=== PATIENT | male | born 1945 | race Caucasian/White ===

== ENCOUNTER 2022-06-21 08:07 | Emergency (ER) | payer MEDICARE, SELFPAY ==
[2022-06-21 08:13] VITALS: BP 151/64; PULSE 59; RESP 14; TEMP 36; O2SAT 97; BMI 23.7
--- NOTE | 2022-06-21 08:28 | ED.SKABFB ---
HPI - Skin/Abscess/Foreign Bdy General Time Seen by Provider: 08:28 Date Seen: 06/21/22 Chief complaint: Skin/Abscess/Foreign Body Stated complaint: swelling on foot/rash on leg Time Seen by Provider: 06/21/22 08:08 Source: patient Mode of arrival: ambulatory Limitations: no limitations History of Present Illness HPI narrative: Mr. Hernandez is a 76-year-old gentleman who is in good health. He presents here with a rash on his left anterior peña region. It is not all problematic for Mother that he discovered at this morning. It does not hurt, there is no swelling, he has had no fevers chills or any other systemic symptoms with this. Not related to an insect bite or anything else. He does have a history of a mild heart attack less than a year ago, is on Plavix and aspirin. He called the nurse's line and they directed him here for an evaluation. He tells me he just want to see a doctor at the clinic. MD complaint: rash Related Data Home Medications Medication Instructions Recorded Confirmed clopidogrel 75 mg tablet mg 06/21/22 metoprolol succinate 25 mg mg PO 06/21/22 tablet,extended release 24 hr nitroglycerin 0.4 mg sublingual mg 06/21/22 tablet pantoprazole 20 mg tablet,delayed mg PO 06/21/22 release sildenafil 100 mg tablet mg 06/21/22 Allergies Allergy/AdvReac Type Severity Reaction Status Date / Time amoxicillin Allergy Verified 06/21/22 08:18 Penicillins Allergy Verified 06/21/22 08:18 Review of Systems Status of ROS: Reports: 6 or more systems reviewed and unremarkable except as noted in History and below Exam Narrative: Exam Narrative: He is in no apparent distress nontoxic, his legs are examined bilaterally he has an area of per per on his left anterior leg medially, that is approximately 4 x 4 cm. Is more petechial and purpuric actually. Nonblanching. There is no tenderness associated with the, there is no distal swelling, he does have varicosities in his legs bilaterally, but they are not tender. No swelling evident, and he has a similar rash me for quite some time. On his right leg, I viewed viewed he has a few petechial like lesions although smaller than the left on the right. His pulses are good bilaterally, his muscle bulk is good he is able to ambulate normally. Const: Vital Signs, click to edit/add: Vital Signs - 24 hr 06/21/22 08:13 Temperature 96.8 F L Pulse Rate [Right Pulse Oximeter] 59 L Respiratory Rate 14 Blood Pressure [Le ft Upper Arm] 151/64 H Pulse Oximetry 97 Oxygen Delivery Me thod Room Air Documenting provider has reviewed patient's vital signs: yes Course Vital Signs Vital signs: Initial Vital Signs Temperature 96.8 F L 06/21/22 08:13 Temperature Source Temporal Artery Scan 06/21/22 08:13 Pulse Rate 59 L 06/21/22 08:13 Respiratory Rate 14 06/21/22 08:13 Blood Pressure 151/64 H 06/21/22 08:13 Blood Pressure Mean 93 06/21/22 08:13 Blood Pressure Position Sitting 06/21/22 08:13 Pulse Oximetry 97 06/21/22 08:13 Oxygen Delivery Method 06/21/22 08:13 Vital Signs Temperature 96.8 F L 06/21/22 08:13 Pulse Rate 59 L 06/21/22 08:13 Respiratory Rate 14 06/21/22 08:13 Blood Pressure 151/64 H 06/21/22 08:13 Pulse Oximetry 97 06/21/22 08:13 Oxygen Delivery Method 06/21/22 08:13 Temperature 96.8 F L 06/21/22 08:13 Pulse Rate 59 L 06/21/22 08:13 Respiratory Rate 14 06/21/22 08:13 Blood Pressure 151/64 H 06/21/22 08:13 Pulse Oximetry 97 06/21/22 08:13 Oxygen Delivery Method 06/21/22 08:13 MDM - Skin/Abscess/Foreign Bdy MDM Narrative Medical decision making narrative: Differential diagnosis include but are not limited to contact dermatitis, allergic reaction, shingles, impetigo, seborrheic dermatitis, Jone Anant syndrome, ITP, meningococcus, HSP I do not think this is anything to worry about, told Mr. Hernandez this. He was systemically sick then I would consider other possible causes, there is no evidence of a tick bite insect bite, associated with this, or bull's-eye lesion. There is also no evidence of what I would describe as HSP, or meningococcus as a cause. If he does become sicker feeling unwell then I think a re-evaluation would be needed but reassurance is all in needs at the present time. He was very comfortable with this plan. Left ambulatory Discharge Plan Discharge Clinical Impression: Rash Patient Disposition: Home, Self-Care Condition: Stable Additional Instructions: Home rest reassurance given, I think this is from a little bit of blood that leaked and under the skin. Be from a little bit of a traumatic episode or possibly from a factor on the Plavix and aspirin. He should continue the Plavix and aspirin as this is helping her harness is way more important than a little bit of cosmetic stuff on her shins. I would only be worried about this if you are feeling unwell with fevers chills nausea vomiting or any other symptoms like that. I would do nothing for this go about your day be reassured follow-up if any further issues Activity Level: No Restrictions Prescriptions: No Action clopidogrel 75 mg tablet sildenafil 100 mg tablet Label Comments: TAKE 1 TABLET BY MOUTH EVERY DAY. TAKE 30MIN TO 4 HOURS BEFORE SEXUAL ACTIVITY pantoprazole 20 mg tablet,delayed release (DR/EC) PO nitroglycerin 0.4 mg tablet, sublingual metoprolol succinate 25 mg tablet extended release 24 hr PO Stand Alone Forms: 1010data Info Instructions
== END 2022-06-21 08:47 | disposition home or self-care (01) ==
LOC: ED 08:31
PROVIDERS: Emergency Provider Family Medicine; PCP Family Medicine
DX: R21 Rash and other nonspecific skin eruption (principal)
CPT/HCPCS: 99282; 99283

== ENCOUNTER 2022-11-02 11:42 | Observation (INO) | payer MEDICARE, SELFPAY ==
[2022-11-02 11:48] VITALS: BP 179/86; PULSE 76; RESP 18; TEMP 36.3; O2SAT 98; BMI 24.4
--- NOTE | 2022-11-02 12:27 | ED.ABDPAIN ---
HPI - Abdominal Pain General Chief Complaint: Abdominal Pain Stated Complaint: Abdominal pain Time Seen by Provider: 11/02/22 11:53 History of Present Illness HPI narrative: 76-year-old man presenting to the emergency department with complaint of increasing abdominal pain. Has not manage any significant urine output since last night. Has not noticed a problem with urinary retention historically; urinates once or twice a night and this has not been changed until yesterday. Has not had a fever. Has had nausea but no vomiting. It has been 2 days since he had a bowel movement. There has been no fever. He is having an urge to ?go? and then can not produce anything. Does have a current left inguinal hernia. He feels pain in intense pressure radiating down into his groin and then into his back upper legs. Does have a history of exploratory laparotomy and appendectomy. Apparently rather remotely had an inguinal hernia repair as well. Related Data Home Medications Medication Instructions Recorded Confirmed clopidogrel 75 mg tablet 75 mg PO DAILY 06/21/22 11/04/22 metoprolol succinate 25 mg 25 mg PO DAILY 06/21/22 11/04/22 tablet,extended release 24 hr nitroglycerin 0.4 mg sublingual 0.4 mg sublingual Q5M PRN 06/21/22 11/04/22 tablet pantoprazole 20 mg tablet,delayed 20 mg PO .before meals 06/21/22 11/04/22 release sildenafil 100 mg tablet 100 mg PO Q24H PRN 06/21/22 11/04/22 lisinopril 5 mg tablet 5 mg PO DAILY 11/02/22 11/04/22 rosuvastatin 40 mg tablet 40 mg PO HS 11/02/22 11/04/22 Previous Rx's Medication Instructions Recorded polyethylene glycol 3350 17 gram 17 g PO DAILY #100 ea 11/03/22 oral powder packet (Miralax) psyllium husk (with sugar) 3.4 1 tbsp PO DAILY #30 ea 11/03/22 gram oral powder packet (Metamucil (with sugar)) sennosides 8.6 mg-docusate sodium 2 tab PO BID #100 tabs 11/03/22 50 mg tablet (Stool Softener-Laxative) tamsulosin 0.4 mg capsule 0.4 mg PO HS #30 caps 11/03/22 Allergies Allergy/AdvReac Type Severity Reaction Status Date / Time amoxicillin Allergy Verified 11/04/22 17:17 Penicillins Allergy Verified 11/04/22 17:17 Review of Systems Status of ROS Reports: 6 or more systems reviewed and unremarkable except as noted in History and below [facility] Medical History CAD (coronary artery disease) GERD (gastroesophageal reflux disease) Hypertension NSTEMI (non-ST elevated myocardial infarction) Sensorineural hearing loss (SNHL) of both ears Spondylolysis of lumbar region Surgical History S/P appendectomy S/P cataract extraction S/P cholecystectomy S/P lateral meniscectomy of left knee S/P right inguinal hernia repair Social History Narrative: Nonsmoker, alcohol 3 times a week. 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 Code status is full. Highest level of school completed/degree received: some college, no degree Smoking Status: Never smoker How often do you have a drink containing alcohol: 2-3 times a week Alcohol type: wine and hard liquor AUDIT-C Alcohol total score: 3 Non-prescribed substance use: denies use Caffeine: No service: No Exam Narrative: Exam Narrative: A pleasant. Tall. Clearly very uncomfortable. Unaware I had passed him on his way to the bathroom. Returns to the room. Lying semi recumbent in the bed slightly rotated to the left. Breathing as if uncomfortable slightly labored. Skin is warm and dry. Oropharynx is sticky. Lungs appear to be clear. Cardiovascular with a regular rate and rhythm. Abdomen diminished bowel sounds. Full and tender across the low abdomen. Tense but not with clear peritoneal signs. Palpation of the left inguinal canal does not elicit more tenderness. Right of midline low abdominal scar. Right low horizontal scar consistent with appendectomy. Const: Vital Signs, click to edit/add: Vital Signs - 24 hr 11/02/22 11:48 11/02/22 15:30 11/02/22 16:03 Temperature 97.3 F L 97.5 F L Pulse Rate [Right Pulse Oximeter] 76 64 71 Respiratory Rate 18 16 18 Blood Pressure [Ri ght Upper Arm] 179/86 H 144/80 H 146/88 H Pulse Oximetry 98 95 99 Oxygen Delivery Me thod Room Air Room Air Room Air Documenting provider has reviewed patient's vital signs: yes Course Course Hospital Course: 76-year-old male admitted to the hospital with severe low abdominal pain. He was ultimately determined that his pain was primarily due to urinary retention with 1000 mL of retained urine in his bladder. This was associated with fecal impaction. On CT scan he had pneumatosis coli and evidence of proctitis. This was managed conservatively with disimpaction of the stool. He did not require an operation. After a Hernandez catheter was placed the stool was removed he has been feeling fine. Vital Signs Vital signs: Initial Vital Signs Temperature 97.3 F L 11/02/22 11:48 Temperature Source Temporal Artery Scan 11/02/22 11:48 Pulse Rate 76 11/02/22 11:48 Respiratory Rate 18 11/02/22 11:48 Blood Pressure 179/86 H 11/02/22 11:48 Blood Pressure Mean 117 11/02/22 11:48 Blood Pressure Position Sitting 11/02/22 11:48 Pulse Oximetry 98 11/02/22 11:48 Oxygen Delivery Method 11/02/22 11:48 Vital Signs Temperature 97.3 F L 11/02/22 11:48 Pulse Rate 76 11/02/22 11:48 Respiratory Rate 18 11/02/22 11:48 Blood Pressure 179/86 H 11/02/22 11:48 Pulse Oximetry 98 11/02/22 11:48 Oxygen Delivery Method 11/02/22 11:48 Temperature 98 F 11/03/22 11:27 Pulse Rate 71 11/03/22 07:00 Respiratory Rate 12 11/03/22 11:27 Blood Pressure 123/64 11/03/22 07:00 Pulse Oximetry 94 11/03/22 07:00 Oxygen Delivery Method 11/03/22 07:00 MDM - Abdominal Pain MDM Narrative Medical decision making narrative: I do not think that 2 days of constipation would contribute to current symptoms though admittedly this could have been building up over time. I did propose bladder scan as this might explain most of his symptoms. Pending this then further workup. Bladder scan for more than 700. We will be placing a Hernandez. Still with spasms pain periodically and the urge to defecate. quickly more than 1 liter out in hernandez. I anticipated placing an enema for large amount of stool by my read appreciated in CT...however rad overread with concern of pneumatosis coli as well. IMPRESSION: Rectosigmoid fecal impaction with stercoral proctitis. There is also subtle pneumatosis of the rectum. No free air or collection. Surgical consultation is advised. spoke with surgeon supervisor irrigation who were able to evaluate in the ER and anticipated going to OR. However Mr. Hernandez then accomplished large BM. and improved symptoms. recommendations for admission and monitoring. Medical Records Attestation: I reviewed the patient's medical records. Lab Data Attestation: I reviewed the patient's lab results. Labs: Lab Results 11/02/22 11/02/22 11/02/22 Range/Units 12:49 13:20 13:20 WBC 6.46 (4.50-11.00) K/uL RBC 4.18 L (4.30-5.90) m/uL Hgb 13.7 (13.5-17.5) gm/dL Hct 39.7 (37.0-53.0) % MCV 95 (80-100) fL MCH 33 (26-34) pg MCHC 35 (32-36) gm/dL RDW Coeff of Joel 12.2 (11.5-15.5) % Plt Count 166 (140-440) K/uL Neut % (Auto) 81.4 H (42.0-72.0) % Lymph % (Auto) 11.3 L (20-44) % [place] % (Auto) 6.5 (0.0-11.0) % Eos % (Auto) 0.3 (0.0-7.0) % Baso % (Auto) 0.3 (0.0-3.0) % Neut # (Auto) 5.30 (1.7-7.0) K/uL Lymph # (Auto) 0.70 L (0.90-2.90) K/uL [place] # (Auto) 0.40 (0.00-0.90) K/UL Eos # (Auto) 0.02 (0.00-0.50) K/uL Baso # (Auto) 0.02 (0.00-0.30) K/uL Abs Immat Gran (auto) 0.01 (0.00-0.30) K/uL Imm/Tot Granulo (auto) 0.2 % Sodium (135-149) mmol/L Potassium (3.6-5.1) mmol/L Chloride (96-114) mmol/L Carbon Dioxide (20-32) mmol/L BUN (7-30) mg/dL Creatinine (0.5-1.5) mg/dL Estimated Creat Clear Estimated GFR ml/min Glucose (60-115) mg/dL Calcium (8.4-10.6) mg/dL Total Bilirubin (0.1-1.5) mg/dL Direct Bilirubin (0.0-0.5) mg/dL AST (12-35) U/L ALT (4-50) U/L Alkaline Phosphatase (40-150) U/L C-Reactive Protein < 0.5 L (0.5-1.0) mg/dL Total Protein (6.0-8.3) g/dL Albumin (3.3-5.0) g/dL Urine Color Yellow (Yellow) Urine Appearance Clear (Clear) Urine pH 7.0 (5.0-8.5) Ur Specific [place] 1.015 (1.000-1.030) Urine Protein Negative (Negative) Urine Glucose (UA) Negative (Negative) Urine Ketones Negative (Negative) Urine Blood Negative (Negative) Urine Nitrite Negative (Negative) Urine Bilirubin Negative (Negative) Urine Urobilinogen 0.2 (0.2-1.0) Ur Leukocyte Esterase Negative (Negative) Urine RBC 0-2 (0-2) Urine WBC 0-2 (0-5) Ur Squamous Epith Cells None (None-Few) Urine Bacteria None (None) SARS-CoV-2 (PCR) (Negative) 11/02/22 11/02/22 Range/Units 13:20 13:20 WBC (4.50-11.00) K/uL RBC (4.30-5.90) m/uL Hgb (13.5-17.5) gm/dL Hct (37.0-53.0) % MCV (80-100) fL MCH (26-34) pg MCHC (32-36) gm/dL RDW Coeff of Joel (11.5-15.5) % Plt Count (140-440) K/uL Neut % (Auto) (42.0-72.0) % Lymph % (Auto) (20-44) % [place] % (Auto) (0.0-11.0) % Eos % (Auto) (0.0-7.0) % Baso % (Auto) (0.0-3.0) % Neut # (Auto) (1.7-7.0) K/uL Lymph # (Auto) (0.90-2.90) K/uL [place] # (Auto) (0.00-0.90) K/UL Eos # (Auto) (0.00-0.50) K/uL Baso # (Auto) (0.00-0.30) K/uL Abs Immat Gran (auto) (0.00-0.30) K/uL Imm/Tot Granulo (auto) % Sodium 139 (135-149) mmol/L Potassium 4.0 (3.6-5.1) mmol/L Chloride 109 (96-114) mmol/L Carbon Dioxide 23 (20-32) mmol/L BUN 23 (7-30) mg/dL Creatinine 1.0 (0.5-1.5) mg/dL Estimated Creat Clear 67.90 Estimated GFR 78 ml/min Glucose 104 (60-115) mg/dL Calcium 9.3 (8.4-10.6) mg/dL Total Bilirubin 0.8 (0.1-1.5) mg/dL Direct Bilirubin 0.1 (0.0-0.5) mg/dL AST 28 (12-35) U/L ALT 25 (4-50) U/L Alkaline Phosphatase 39 L (40-150) U/L C-Reactive Protein (0.5-1.0) mg/dL Total Protein 6.5 (6.0-8.3) g/dL Albumin 4.2 (3.3-5.0) g/dL Urine Color (Yellow) Urine Appearance (Clear) Urine pH (5.0-8.5) Ur Specific [place] (1.000-1.030) Urine Protein (Negative) Urine Glucose (UA) (Negative) Urine Ketones (Negative) Urine Blood (Negative) Urine Nitrite (Negative) Urine Bilirubin (Negative) Urine Urobilinogen (0.2-1.0) Ur Leukocyte Esterase (Negative) Urine RBC (0-2) Urine WBC (0-5) Ur Squamous Epith Cells (None-Few) Urine Bacteria (None) SARS-CoV-2 (PCR) Negative SARS-CoV-2 (Negative) ECG Data Attestation: I personally reviewed and interpreted this ECG as follows: (Normal sinus rate of 71 -- in anticipation of surgery) Discharge Plan Discharge Clinical Impression: Proctitis, Pneumatosis coli, Acute urinary retention, Obstipation Patient Disposition: Admitted As Inpatient Condition: Stable Activity Level: No Restrictions
--- NOTE | 2022-11-02 13:03 | CRLHL7_ITS ---
For Patients: As a result of the 21st Century Cures Act, medical imaging exams and procedure reports are released immediately into your electronic medical record. You may view this report before your referring provider. If you have questions, please contact your health care provider. INDICATION: Persistent abdominal pain COMPARISON: None TECHNIQUE: CT examination of the abdomen and pelvis was performed following the uneventful intravenous administration of 89 cc of Isovue 370. Thin section axial images were obtained from the lung bases through the pubic symphysis. Oral contrast was not administered. Please note that all CT scans at this facility use dose modulation, iterative reconstruction, and/or weight-based dosing when appropriate to reduce radiation dose to as low as reasonably achievable. FINDINGS: LUNG BASES: The lung bases as visualized appear normal.Heart size normal. The lung bases. Vascular calcifications. Hiatal hernia. LIVER/BILIARY SYSTEM:The liver is normal in size and configuration. There is no focal mass and there is no intra- or extra hepatic biliary ductal dilatation.Steatosis. Absent gallbladder. ADRENALS: Normal KIDNEYS, URETERS and BLADDER:The kidneys appear normal in size. There are bilateral extrarenal pelves, a normal variation. Ureters appear normal. Choudhary catheter decompresses the bladder. SPLEEN:Normal appearance. PANCREAS: Appears normal. RETROPERITONEUM and MESENTERY: There is no mass, adenopathy or aortic aneurysm. Vascular calcification GASTROINTESTINAL SYSTEM: Rectosigmoid fecal impaction. Wall thickening of the rectum with surrounding inflammatory change consistent with stercoral proctitis. There is also mild pneumatosis involving the rectum. There is no free air or collection. The pneumatosis is best seen in the right aspect of the rectum on series 2, images 109-119, where there are findings suggesting submucosal air. PELVIS: No mass, adenopathy or free fluid. OSSEOUS STRUCTURES and ABDOMINAL WALL: There is an age-appropriate appearance of the osseous structures.There is a large fat containing left hernia and a small fat containing right hernia. OTHER: No free fluid or free air. I discussed this case with Dr. Reynaldo Singh at 3:25 p.m. on November 02, 2022 IMPRESSION: Rectosigmoid fecal impaction with stercoral proctitis. There is also subtle pneumatosis of the rectum. No free air or collection. Surgical consultation is advised. Please note that all CT scans at this facility use dose modulation, iterative reconstruction, and/or weight-based dosing when appropriate to reduce radiation dose to as low as reasonably achievable. Dictated by Bill Noland MD @ 11/02/2022 3:29:33 PM (Electronically Signed)
[2022-11-02 13:06] LABS: Appearance Urine Clear (Clear); Bilirubin Urine Negative (Negative); Blood Urine Negative (Negative); Color Urine Yellow (Yellow); Glucose Urine Negative (Negative); Ketones Urine Negative (Negative); Leukocyte Esterase Urine Negative (Negative); Nitrite Urine Negative (Negative); Protein Urine Negative (Negative); Specific Gravity Urine 1.015 (1.000-1.030); Urobilinogen Urine 0.2 (0.2-1.0)
[2022-11-02 13:19] LABS: RBC Urine 0-2 (0-2); WBC Urine 0-2 (0-5)
[2022-11-02 13:46] LABS: Basophils Absolute Auto 0.02 K/uL (0.00-0.30); Basophils Percent Auto 0.3 % (0.0-3.0); Eosinophils Absolute Auto 0.02 K/uL (0.00-0.50); Eosinophils Percent Auto 0.3 % (0.0-7.0); Hematocrit 39.7 % (37.0-53.0); Hemoglobin* 13.7 gm/dL (13.5-17.5); Immature Granulocytes Abs Auto 0.01 K/uL (0.00-0.30); Immature Granulocytes Pct Auto 0.2 %; Lymphocytes Percent Auto 11.3 % (20-44); Mean Corpuscular HGB Conc 35 gm/dL (32-36); Mean Corpuscular Hemoglobin 33 pg (26-34); Mean Corpuscular Volume 95 fL (80-100); Monocytes Percent Auto 6.5 % (0.0-11.0); Neutrophils Percent Auto 81.4 % (42.0-72.0); Platelet Count* 166 K/uL (140-440); RDW Coefficient of Variation % 12.2 % (11.5-15.5); Red Blood Count 4.18 m/uL (4.30-5.90); White Blood Count* 6.46 K/uL (4.50-11.00)
[2022-11-02 13:47] LABS: Chloride* 109 mmol/L (96-114); Slide Review Reflex No
[2022-11-02 13:48] LABS: Albumin* 4.2 g/dL (3.3-5.0); Sodium* 139 mmol/L (135-149)
[2022-11-02 13:51] LABS: Aspartate Amino Transferase* 28 U/L (12-35); Bilirubin Direct* 0.1 mg/dL (0.0-0.5); Bilirubin Total* 0.8 mg/dL (0.1-1.5); Blood Urea Nitrogen* 23 mg/dL (7-30); Carbon Dioxide* 23 mmol/L (20-32); Estimated Glomerular Filt Rate 78 ml/min; Total Protein* 6.5 g/dL (6.0-8.3)
[2022-11-02 13:52] LABS: Alanine Aminotransferase* 25 U/L (4-50); Alkaline Phosphatase* 39 U/L (40-150); Calcium* 9.3 mg/dL (8.4-10.6); Glucose* 104 mg/dL (60-115)
[2022-11-02 13:54] LABS: C Reactive Protein* < 0.5 mg/dL (0.5-1.0)
[2022-11-02 14:06] LABS: SARS PCR* Negative SARS-CoV-2 (Negative)
[2022-11-02] MEDS: 0.9 % SODIUM CHLORIDE 1000 ml 1,000 ML IV (15:00)
--- NOTE | 2022-11-02 15:28 | ED.NURSE ---
Catheter teaching completed with patient and . Leg bag given to them and syringe to clean out catheter. Handed patient off to KE seo.
[2022-11-02 15:30] VITALS: BP 144/80; PULSE 64; RESP 16; TEMP 36.4; O2SAT 95
[2022-11-02 16:03] VITALS: BP 146/88; PULSE 71; RESP 18; O2SAT 99
--- NOTE | 2022-11-02 16:30 | ED.NURSE ---
did not get fleets enema due to request to have surgeon see first.
--- NOTE | 2022-11-02 17:30 | ED.NURSE ---
did empty hernandez catheter had 750 ml of straw colored urine. has been incontinent of sttol. is wearing attends. gets crampy like pain. has been at bs.
--- NOTE | 2022-11-02 18:40 | ED.NURSE ---
dr mata in to see and interview. did have a large bowel movement. soft brown. will not be going to or per dr vences. had digital stimulation to get bwel moving.
--- NOTE | 2022-11-02 18:58 | P.GSCN_ITS ---
History of Present Illness Consult details Date Seen: 11/02/22 Consult date: 11/02/22 Narrative: The patient is a 76-year-old male presents to the emergency department today with lower abdominal which started this afternoon. This is severe crampy pain of his lower abdomen. His last bowel movement was 2 days ago and was normal for him. He states he has bowel movements every day but does take senna twice a day to help with this. He used to take senna only once today but around or 1 month ago he has felt that he needed to increase this because 1 was not working. Since this has been going on he will only have a small amount of runny stool. He states that he had regular colonoscopies he things over at [facility] however he cannot remember his last 1. This might have been age 59. Denies any blood in his stool. No family history of colon cancer. Choudhary was placed in the ER and he was found to have over 1 L of urine which was retained. Per his [facility] chart he had a colonoscopy in 2013 with diverticulosis. No follow-up was recommended. Review of Systems Status of ROS: Reports: 10 or more systems reviewed and unremarkable except as noted in History and below [facility] Medical History (Updated 11/02/22 @ 19:07 by Joslyn Bearden MD) CAD (coronary artery disease) GERD (gastroesophageal reflux disease) Hypertension NSTEMI (non-ST elevated myocardial infarction) Sensorineural hearing loss (SNHL) of both ears Spondylolysis of lumbar region Surgical History (Updated 11/02/22 @ 19:05 by Joslyn Bearden MD) S/P appendectomy S/P cataract extraction S/P cholecystectomy S/P lateral meniscectomy of left knee S/P right inguinal hernia repair Social History (Updated 11/02/22 @ 19:05 by Joslyn Bearden MD) Narrative: Nonsmoker, alcohol 3 times a week. 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 [employer] Smoking Status: Unknown if ever smoked Non-prescribed substance use: denies use service: No Meds Home Medications and Allergies Home Medications Medication Instructions Recorded Confirmed Type clopidogrel 75 mg tablet 75 mg PO DAILY 06/21/22 11/02/22 History metoprolol succinate 25 mg 25 mg PO DAILY 06/21/22 11/02/22 History tablet,extended release 24 hr nitroglycerin 0.4 mg sublingual 0.4 mg sublingual PRN 06/21/22 History tablet pantoprazole 20 mg tablet,delayed 20 mg PO .before meals 06/21/22 11/02/22 History release sildenafil 100 mg tablet 100 mg PO PRN 06/21/22 History lisinopril 5 mg tablet 5 mg PO DAILY 11/02/22 11/02/22 History rosuvastatin 40 mg tablet 40 mg PO HS 11/02/22 11/02/22 History Allergies Allergy/AdvReac Type Severity Reaction Status Date / Time amoxicillin Allergy Verified 11/02/22 14:58 Penicillins Allergy Verified 11/02/22 14:58 Exam Narrative: Exam Narrative: General appearance: Alert, cooperative, and in no distress Eyes: PERRLA, eye lids clear, and sclera white HENT Head: Normocephalic Pulmonary: Breathing nonlabored on room air Cardiovascular Heart: Regular rate Extremities: warm and well perfused Gastrointestinal Abdominal: Scars consistent with surgical history. Tenderness on lower abdomen. On rectal exam which was performed with a childcare center administrator present there is soft stool in the rectal vault. No masses. No blood grossly. Choudhary in place with clear urine. Musculoskeletal: Extremities: Upper: Both upper extremities have normal joint range of motion and intact strength. Lower: Both lower extremities have normal joint range of motion and intact strength. Skin: Normal skin color, texture, and turgor. No rashes or lesions. Neurologic: No focal deficits Psychiatric: Alert, oriented, cooperative, normal affect. Const: Vital Signs, click to edit/add: Vital Signs - 24 hr 11/02/22 11:48 11/02/22 15:30 11/02/22 16:03 Temperature 97.3 F L 97.5 F L Pulse Rate [Right Pulse Oximeter] 76 64 71 Respiratory Rate 18 16 18 Blood Pressure [Ri ght Upper Arm] 179/86 H 144/80 H 146/88 H Pulse Oximetry 98 95 99 Oxygen Delivery Me thod Room Air Room Air Room Air Results Labs Labs: Abnormal lab results 11/02/22 11/02/22 11/02/22 Range/Units 13:20 13:20 13:20 RBC 4.18 L (4.30-5.90) m/uL Neut % (Auto) 81.4 H (42.0-72.0) % Lymph % (Auto) 11.3 L (20-44) % Lymph # (Auto) 0.70 L (0.90-2.90) K/uL Alkaline Phosphatase 39 L (40-150) U/L C-Reactive Protein < 0.5 L (0.5-1.0) mg/dL Diabetes panel 11/02/22 Range/Units 13:20 Sodium 139 (135-149) mmol/L Potassium 4.0 (3.6-5.1) mmol/L Chloride 109 (96-114) mmol/L Carbon Dioxide 23 (20-32) mmol/L BUN 23 (7-30) mg/dL Creatinine 1.0 (0.5-1.5) mg/dL Glucose 104 (60-115) mg/dL Calcium 9.3 (8.4-10.6) mg/dL AST 28 (12-35) U/L ALT 25 (4-50) U/L Alkaline Phosphatase 39 L (40-150) U/L Total Protein 6.5 (6.0-8.3) g/dL Albumin 4.2 (3.3-5.0) g/dL Calcium panel 11/02/22 Range/Units 13:20 Calcium 9.3 (8.4-10.6) mg/dL Albumin 4.2 (3.3-5.0) g/dL Pituitary panel 11/02/22 Range/Units 13:20 Sodium 139 (135-149) mmol/L Potassium 4.0 (3.6-5.1) mmol/L Chloride 109 (96-114) mmol/L Carbon Dioxide 23 (20-32) mmol/L BUN 23 (7-30) mg/dL Creatinine 1.0 (0.5-1.5) mg/dL Glucose 104 (60-115) mg/dL Calcium 9.3 (8.4-10.6) mg/dL Adrenal panel 11/02/22 Range/Units 13:20 Sodium 139 (135-149) mmol/L Potassium 4.0 (3.6-5.1) mmol/L Chloride 109 (96-114) mmol/L Carbon Dioxide 23 (20-32) mmol/L BUN 23 (7-30) mg/dL Creatinine 1.0 (0.5-1.5) mg/dL Glucose 104 (60-115) mg/dL Calcium 9.3 (8.4-10.6) mg/dL Total Bilirubin 0.8 (0.1-1.5) mg/dL AST 28 (12-35) U/L ALT 25 (4-50) U/L Alkaline Phosphatase 39 L (40-150) U/L Total Protein 6.5 (6.0-8.3) g/dL Albumin 4.2 (3.3-5.0) g/dL All other labs normal. Imaging Abdomen CT scan report/results: report reviewed and image reviewed Additional studies: INDICATION: Persistent abdominal pain COMPARISON: None TECHNIQUE: CT examination of the abdomen and pelvis was performed following the uneventful intravenous administration of 89 cc of Isovue 370. Thin section axial images were obtained from the lung bases through the pubic symphysis. ?Oral contrast was not administered.? Please note that all CT scans at this facility use dose modulation, iterative reconstruction, and/or weight-based dosing when appropriate to reduce radiation dose to as low as reasonably achievable. FINDINGS: LUNG BASES: The lung bases as visualized appear normal.Heart size normal. The lung bases. Vascular calcifications. Hiatal hernia. LIVER/BILIARY SYSTEM:The liver is normal in size and configuration. There is no focal mass and there is no intra- or extra hepatic biliary ductal dilatation.Steatosis. Absent gallbladder. ADRENALS: Normal KIDNEYS, URETERS and BLADDER:The kidneys appear normal in size. There are bilateral extrarenal pelves, a normal variation. Ureters appear normal. Choudhary catheter decompresses the bladder. SPLEEN:Normal appearance. PANCREAS: Appears normal. RETROPERITONEUM and MESENTERY: There is no mass, adenopathy or aortic aneurysm. Vascular calcification GASTROINTESTINAL SYSTEM: Rectosigmoid fecal impaction. Wall thickening of the rectum with surrounding inflammatory change consistent with stercoral proctitis. There is also mild pneumatosis involving the rectum. There is no free air or collection. The pneumatosis is best seen in the right aspect of the rectum on series 2, images 109-119, where there are findings suggesting submucosal air. PELVIS: No mass, adenopathy or free fluid. OSSEOUS STRUCTURES and ABDOMINAL WALL: There is an age-appropriate appearance of the osseous structures.There is a large fat containing left hernia and a small fat containing right hernia. OTHER: No free fluid or free air. I discussed this case with Dr. Reynaldo Singh at 3:25 p.m. ? on November 02, 2022 IMPRESSION: Rectosigmoid fecal impaction with stercoral proctitis. There is also subtle pneumatosis of the rectum. No free air or collection. Surgical consultation is advised. Please note that all CT scans at this facility use dose modulation, iterative reconstruction, and/or weight-based dosing when appropriate to reduce radiation dose to as low as reasonably achievable. Dictated by Bill Noland MD @ 11/02/2022 3:29:33 PM Assessment and Plan Assessment and plan (1) Pneumatosis coli: Status: Acute (2) Fecal impaction: Status: Acute Plan The patient is a 76-year-old male with fecal impaction and urinary retention. CT scan showed pneumatosis of the rectum. I discussed this with the radiologist. This appeared to be in the extraperitoneal portion of the rectum. The patient is otherwise nontoxic, however because of concern for ischemia, I had a long talk with the patient and his about options. Initially there was discussion of disimpaction in the operating room with proctoscopy and possible laparotomy versus laparoscopy if there was any concern for serosal ischemia. However, the patient had a small bowel movement after my digital rectal exam. Because of this, I performed another digital rectal exam with a childcare center administrator present and broke up some of the semi formed stool in the rectal vault. This all immediately came out. We decided to do this again, and the patient had another bowel movement and he said this time he felt as though he had some relief and he was able to push more stool out. We then had him sit on the commode any had a large bowel movement. The plan will then be to admit the patient for observation overnight given his urinary retention. I explained that he may need to go home with a Choudhary catheter since the bladder was so distended. We will observe him though I believe his rectum will likely not be truly ischemic and as long as he does well could potentially discharge home tomorrow on a more aggressive bowel regimen. Certainly P developed pain fever, or tachycardia then we would reassess the situation. I explained that he may have some bloody mucosal sloughing, however his stool was very soft and so hopefully he will not experience any other symptoms.
[2022-11-02 19:00] VITALS: BP 134/68; PULSE 71; RESP 18; O2SAT 95
--- NOTE | 2022-11-02 19:06 | PM.IMHP1 ---
Hospitalist- H&P: HPI History of Present Illness Date Seen: 11/02/22 Chief complaint: Abdominal pain Narrative: Brody Hernandez is a 76 year old male with history of constipation presents with onset of severe low abdominal pain today and ongoing problems with constipation. His last bowel movement was 2 days ago. It was small and formed. Nonbloody. He took some extra stool softener because he felt constipated. Today he felt an urge to urinate but was unable to empty his bladder and had a lot of pain associated with that. He does have a left inguinal hernia that is bothering him and he is pending surgery for that at [facility]. He chronically takes 1 senna tablet twice daily and sometimes adds in extra stool softener he does not have any history of urinary retention but does tell me that his urine stream is decreased and he gets up 3 times at night to void. In the emergency department he had a Choudhary catheter placed and 1000 mL of urine came out. He had an abdominal CT which showed constipation in the rectum with rectal pneumatosis. He was seen by Dr. Bearden who initially planned to take him to the OR. He was able to evacuate the stool spontaneously and decision was made to forego the OR at this time. Review of Systems Narrative: He reports he has generally been well recently without other significant recent illness. [facility] Medical History (Updated 11/02/22 @ 19:18 by Daniel Pettit MD) CAD (coronary artery disease) GERD (gastroesophageal reflux disease) Hypertension NSTEMI (non-ST elevated myocardial infarction) Sensorineural hearing loss (SNHL) of both ears Spondylolysis of lumbar region Surgical History S/P appendectomy S/P cataract extraction S/P cholecystectomy S/P lateral meniscectomy of left knee S/P right inguinal hernia repair Social History (Updated 11/02/22 @ 19:20 by Daniel Pettit MD) Narrative: Nonsmoker, alcohol 3 times a week. 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 Code status is full. Smoking Status: Unknown if ever smoked Non-prescribed substance use: denies use service: No Meds Home Medications and Allergies Home Medications Medication Instructions Recorded Confirmed Type clopidogrel 75 mg tablet 75 mg PO DAILY 06/21/22 11/02/22 History metoprolol succinate 25 mg 25 mg PO DAILY 06/21/22 11/02/22 History tablet,extended release 24 hr nitroglycerin 0.4 mg sublingual 0.4 mg sublingual PRN 06/21/22 History tablet pantoprazole 20 mg tablet,delayed 20 mg PO .before meals 06/21/22 11/02/22 History release sildenafil 100 mg tablet 100 mg PO PRN 06/21/22 History lisinopril 5 mg tablet 5 mg PO DAILY 11/02/22 11/02/22 History rosuvastatin 40 mg tablet 40 mg PO HS 11/02/22 11/02/22 History Allergies Allergy/AdvReac Type Severity Reaction Status Date / Time amoxicillin Allergy Verified 11/02/22 14:58 Penicillins Allergy Verified 11/02/22 14:58 Exam Narrative: Exam Narrative: He is alert and appears in no distress. He gives his own history. Eyes normal. Oropharynx normal. Neck is supple without mass or adenopathy. Respirations are clear to auscultation. Cardiovascular: S1, S2, regular rate and rhythm. No murmur gallop or rub. Abdomen: Bowel sounds active. Abdomen is soft without tenderness or mass. External genitalia with Choudhary in place. Extremities with intact pulses and sensation. He has support hose on both legs. No edema. Const: Vital Signs, click to edit/add: Vital Signs - 24 hr 11/02/22 11:48 11/02/22 15:30 11/02/22 16:03 Temperature 97.3 F L 97.5 F L Pulse Rate [Right Pulse Oximeter] 76 64 71 Respiratory Rate 18 16 18 Blood Pressure [Ri ght Upper Arm] 179/86 H 144/80 H 146/88 H Pulse Oximetry 98 95 99 Oxygen Delivery Me thod Room Air Room Air Room Air Documenting provider has reviewed patient's vital signs: yes Hospitalist - H&P: Result Labs Labs: Short CBC 11/02/22 Range/Units 13:20 WBC 6.46 (4.50-11.00) K/uL Hgb 13.7 (13.5-17.5) gm/dL Hct 39.7 (37.0-53.0) % Plt Count 166 (140-440) K/uL BMP 11/02/22 13:20 Sodium 139 Potassium 4.0 Chloride 109 Carbon Dioxide 23 BUN 23 Creatinine 1.0 Glucose 104 Calcium 9.3 Liver Function 11/02/22 Range/Units 13:20 Total Bilirubin 0.8 (0.1-1.5) mg/dL Direct Bilirubin 0.1 (0.0-0.5) mg/dL AST 28 (12-35) U/L ALT 25 (4-50) U/L Alkaline Phosphatase 39 L (40-150) U/L Albumin 4.2 (3.3-5.0) g/dL Urine 11/02/22 Range/Units 12:49 Urine Color Yellow (Yellow) Urine Appearance Clear (Clear) Urine pH 7.0 (5.0-8.5) Ur Specific [place] 1.015 (1.000-1.030) Urine Protein Negative (Negative) Urine Glucose (UA) Negative (Negative) Assessment and Plan Assessment and plan (1) Fecal impaction: Problem comment: Needs aggressive and long-term management of constipation. Senna, MiraLax, Metamucil to achieve at least 1 soft stool without straining every day. Status: Acute (2) Acute urinary retention: Problem comment: Associated with constipation. Choudhary catheter placed with 1000 mL of residual urine. Aggressively treat constipation, add Flomax and trial of voiding next week. Status: Acute (3) Pneumatosis coli: Problem comment: Associated with constipation. Observe overnight. Doing well home tomorrow Status: Acute Plan Admit for observation overnight for pneumatosis coli, urinary retention and constipation. Probably home tomorrow with outpatient followup for trial of voiding. Total time spent today is 60 minutes, 50 minutes in coordination of care and discussing with patient, and other providers management of constipation and urinary retention
--- NOTE | 2022-11-02 20:17 | ED.NURSE ---
report to haylee coelho. will go to 255.
[2022-11-02 21:01] VITALS: BMI 23.1
[2022-11-02 21:39] VITALS: BP 123/70; PULSE 62; RESP 18; TEMP 36.7; O2SAT 96
[2022-11-02] MEDS: SENNOSIDES/DOCUSATE TABLET 2 TAB PO (22:16)
[2022-11-02] MEDS: TAMSULOSIN HCL 0.4 MG CAPSULE PO (22:16)
[2022-11-02] MEDS: polyethylene glycoL 3350 17 GM PACK PO (22:17)
[2022-11-02] MEDS: ROSUVASTATIN CALCIUM 10 MG TABLET 40 MG PO (22:17)
[2022-11-03 00:54] VITALS: BP 124/63; PULSE 57; RESP 16; TEMP 36.6; O2SAT 97
[2022-11-03 04:36] VITALS: BP 131/73; PULSE 65; RESP 16; TEMP 36.6; O2SAT 95
--- NOTE | 2022-11-03 06:41 | PC.NURSE ---
End of shift status [id number] Pt admitted to room 255 around 1999 from ER with urinary retention and fecal impaction. Pt is alert and oriented. Denies pain. Indwelling catheter present and patent with adequate output. VSS on room air. Up independently. Bowel sounds active, BM x2 this shift. Pt observed resting well between cares. Plan to d/c today with catheter in place.
[2022-11-03 07:00] VITALS: BP 123/64; PULSE 71; RESP 12; TEMP 36.6; O2SAT 94
[2022-11-03 07:18] LABS: C Reactive Protein* 0.8 mg/dL (0.5-1.0)
[2022-11-03] MEDS: OMEPRAZOLE 20 MG CAPSULE DR PO (07:47)
[2022-11-03] MEDS: ASPIRIN 81 MG TABLET EC PO (09:10)
[2022-11-03] MEDS: CLOPIDOGREL 75 MG TABLET PO (09:10)
[2022-11-03] MEDS: METOPROLOL SUCCINATE (XL) 25 MG TAB PO (09:10)
[2022-11-03] MEDS: SENNOSIDES/DOCUSATE TABLET 2 TAB PO (09:10)
[2022-11-03] MEDS: polyethylene glycoL 3350 17 GM PACK PO (09:11)
[2022-11-03] MEDS: lisinopriL 5 MG TABLET PO (09:11)
[2022-11-03] MEDS: PSYLLIUM HUSK (WITH SUGAR) 12 GM PACKET PO (09:18)
--- NOTE | 2022-11-03 09:35 | PM.DS1 ---
DS: Providers Provider Date Seen: 11/03/22 Date of admission: 11/02/22 20:43 Primary care physician: Yang Eng MD Admitting Clinician: Daniel Pettit MD Attending Physician on discharge: Daniel Pettit MD Date of Discharge: 11/03/22 DS: Diagnosis Discharge Diagnosis (1) Fecal impaction: Status: Acute Problem details: To episodes of diarrhea overnight. Appears to be fairly well cleaned out. Needs aggressive and long-term management of constipation. Senna, MiraLax, Metamucil to achieve at least 1 soft stool without straining every day. (2) Proctitis: Status: Acute Problem details: Associated with constipation. Clinically resolved (3) Pneumatosis coli: Status: Acute Problem details: Associated with constipation. No symptoms today. (4) Acute urinary retention: Status: Acute Problem details: Associated with constipation. Choudhary catheter placed with 1000 mL of residual urine. Keep Choudhary catheter in until next week. Trial of voiding at the clinic. Aggressively treat constipation, add Flomax and trial of voiding next week. DS: Summary Hospital Course Hospital Course: 76-year-old male admitted to the hospital with severe low abdominal pain. He was ultimately determined that his pain was primarily due to urinary retention with 1000 mL of retained urine in his bladder. This was associated with fecal impaction. On CT scan he had pneumatosis coli and evidence of proctitis. This was managed conservatively with disimpaction of the stool. He did not require an operation. After a Choudhary catheter was placed the stool was removed he has been feeling fine. Status at Discharge Functional status at discharge: independent ambulation Overall status at discharge: patient is back to baseline Time Spent with Patient Time attestation: Total time spent providing and/or coordinating discharge services: Time spent: Less than 30 minutes Exam Narrative: Exam Narrative: He is alert in no distress. Abdomen is soft without tenderness. Const: Vital Signs, click to edit/add: Vital Signs - 24 hr 11/02/22 11:48 11/02/22 15:30 11/02/22 16:03 Temperature 97.3 F L 97.5 F L Pulse Rate [Right Pulse Oximeter] 76 64 71 Respiratory Rate 18 16 18 Blood Pressure [Le ft Arm] Blood Pressure [Le ft Upper Arm] Blood Pressure [Ri ght Upper Arm] 179/86 H 144/80 H 146/88 H Pulse Oximetry 98 95 99 Oxygen Delivery Me thod Room Air Room Air Room Air 11/02/22 19:00 11/02/22 21:39 11/02/22 21:40 Temperature 98.1 F Pulse Rate [Right Pulse Oximeter] 71 62 Respiratory Rate 18 18 Blood Pressure [Le ft Arm] 123/70 Blood Pressure [Le ft Upper Arm] 134/68 Blood Pressure [Ri ght Upper Arm] Pulse Oximetry 95 96 Oxygen Delivery Me thod Room Air Room Air Room Air 11/03/22 00:54 11/03/22 04:36 11/03/22 07:00 Temperature 97.9 F 97.8 F 98 F Pulse Rate [Right Pulse Oximeter] 57 L 65 71 Respiratory Rate 16 16 12 Blood Pressure [Le ft Arm] 124/63 131/73 123/64 Blood Pressure [Le ft Upper Arm] Blood Pressure [Ri ght Upper Arm] Pulse Oximetry 97 95 94 Oxygen Delivery Me thod Room Air Room Air Room Air 11/03/22 07:00 Temperature Pulse Rate [Right Pulse Oximeter] 71 Respiratory Rate 12 Blood Pressure [Le ft Arm] Blood Pressure [Le ft Upper Arm] Blood Pressure [Ri ght Upper Arm] Pulse Oximetry Oxygen Delivery Me thod Documenting provider has reviewed patient's vital signs: yes DS: Data Data Completed and Pending Labs on day of discharge: Labs from last 24 hours 11/03/22 11/02/22 11/02/22 05:55 13:20 13:20 WBC RBC Hgb Hct MCV MCH MCHC RDW Coeff of Joel Plt Count Neut % (Auto) Lymph % (Auto) [place] % (Auto) Eos % (Auto) Baso % (Auto) Neut # (Auto) Lymph # (Auto) [place] # (Auto) Eos # (Auto) Baso # (Auto) Abs Immat Gran (auto) Imm/Tot Granulo (auto) Sodium 139 Potassium 4.0 Chloride 109 Carbon Dioxide 23 BUN 23 Creatinine 1.0 Estimated Creat Clear 67.90 Estimated GFR 78 Glucose 104 Calcium 9.3 Total Bilirubin 0.8 Direct Bilirubin 0.1 AST 28 ALT 25 Alkaline Phosphatase 39 L C-Reactive Protein 0.8 Total Protein 6.5 Albumin 4.2 Urine Color Urine Appearance Urine pH Ur Specific [place] Urine Protein Urine Glucose (UA) Urine Ketones Urine Blood Urine Nitrite Urine Bilirubin Urine Urobilinogen Ur Leukocyte Esterase Urine RBC Urine WBC Ur Squamous Epith Cells Urine Bacteria SARS-CoV-2 (PCR) Negative SARS-CoV-2 11/02/22 11/02/22 11/02/22 13:20 13:20 12:49 WBC 6.46 RBC 4.18 L Hgb 13.7 Hct 39.7 MCV 95 MCH 33 MCHC 35 RDW Coeff of Joel 12.2 Plt Count 166 Neut % (Auto) 81.4 H Lymph % (Auto) 11.3 L [place] % (Auto) 6.5 Eos % (Auto) 0.3 Baso % (Auto) 0.3 Neut # (Auto) 5.30 Lymph # (Auto) 0.70 L [place] # (Auto) 0.40 Eos # (Auto) 0.02 Baso # (Auto) 0.02 Abs Immat Gran (auto) 0.01 Imm/Tot Granulo (auto) 0.2 Sodium Potassium Chloride Carbon Dioxide BUN Creatinine Estimated Creat Clear Estimated GFR Glucose Calcium Total Bilirubin Direct Bilirubin AST ALT Alkaline Phosphatase C-Reactive Protein < 0.5 L Total Protein Albumin Urine Color Yellow Urine Appearance Clear Urine pH 7.0 Ur Specific [place] 1.015 Urine Protein Negative Urine Glucose (UA) Negative Urine Ketones Negative Urine Blood Negative Urine Nitrite Negative Urine Bilirubin Negative Urine Urobilinogen 0.2 Ur Leukocyte Esterase Negative Urine RBC 0-2 Urine WBC 0-2 Ur Squamous Epith Cells None Urine Bacteria None SARS-CoV-2 (PCR) Imaging CT scan - abdomen: Radiologist's impression: IMPRESSION: Rectosigmoid fecal impaction with stercoral proctitis. There is also subtle pneumatosis of the rectum. No free air or collection. Surgical consultation is advised. Please note that all CT scans at this facility use dose modulation, iterative reconstruction, and/or weight-based dosing when appropriate to reduce radiation dose to as low as reasonably achievable. Dictated by Bill Noland MD @ 11/02/2022 3:29:33 PM Discharge Plan Discharge Disposition: Home, Self-Care Date of Admission: 11/02/22 20:43 Attending Provider on Discharge: Daniel Pettit Primary Care Provider: Yang Eng Condition: Stable Anticipated Discharge Date/Time: 11/03/22 09:40 Discharge Medications: New Metamucil (with sugar) 3.4 gram Powder In Packet 1 tbsp PO DAILY Qty: 30 0RF sennosides-docusate sodium [Stool Softener-Laxative] 8.6-50 mg Tablet 2 tab PO BID Qty: 100 0RF polyethylene glycol 3350 [Miralax] 17 gram Powder In Packet 17 g PO DAILY Qty: 100 0RF tamsulosin 0.4 mg Capsule 0.4 mg PO HS Qty: 30 0RF Continued lisinopril 5 mg tablet 5 mg PO DAILY Label Comments: new medication has not started yet rosuvastatin 40 mg tablet 40 mg PO HS clopidogrel 75 mg tablet 75 mg PO DAILY sildenafil 100 mg tablet 100 mg PO PRN Label Comments: TAKE 1 TABLET BY MOUTH EVERY DAY. TAKE 30MIN TO 4 HOURS BEFORE SEXUAL ACTIVITY pantoprazole 20 mg tablet,delayed release (DR/EC) 20 mg PO .before meals nitroglycerin 0.4 mg tablet, sublingual 0.4 mg sublingual PRN metoprolol succinate 25 mg tablet extended release 24 hr 25 mg PO DAILY Discharge Orders: Discharge Order (Routine); Ordered 11/03/22 Ordered By: Daniel Pettit Additional Instructions: To manage your constipation you need to be aggressive with laxatives. You need more fiber in your diet. Generally Metamucil is the easiest way to get this reliably. He also should use senna and MiraLax every day. Take enough of these medicines to have at least 1 soft stool every day. Activity Level: No Restrictions Follow Up Appointments: Yang Eng MD [Primary Care Provider] - (next week) Forms: MyHealth Info Instructions Discharge Comments: Next week in clinic you should get your catheter removed and then see if your able to urinate without it.
--- NOTE | 2022-11-03 10:29 | PM.GSPN ---
Subjective Subjective Date Seen: 11/03/22 Interval history: Brody is doing well. He has continued to have bowel movements. No abdominal pain. No fevers. Exam Narrative: Exam Narrative: General: No acute distress Abdomen: Soft Choudhary in place draining clear urine Const: Vital Signs, click to edit/add: Vital Signs - 24 hr 11/02/22 11:48 11/02/22 15:30 11/02/22 16:03 Temperature 97.3 F L 97.5 F L Pulse Rate [Right Pulse Oximeter] 76 64 71 Respiratory Rate 18 16 18 Blood Pressure [Le ft Arm] Blood Pressure [Le ft Upper Arm] Blood Pressure [Ri ght Upper Arm] 179/86 H 144/80 H 146/88 H Pulse Oximetry 98 95 99 Oxygen Delivery Me thod Room Air Room Air Room Air 11/02/22 19:00 11/02/22 21:39 11/02/22 21:40 Temperature 98.1 F Pulse Rate [Right Pulse Oximeter] 71 62 Respiratory Rate 18 18 Blood Pressure [Le ft Arm] 123/70 Blood Pressure [Le ft Upper Arm] 134/68 Blood Pressure [Ri ght Upper Arm] Pulse Oximetry 95 96 Oxygen Delivery Me thod Room Air Room Air Room Air 11/03/22 00:54 11/03/22 04:36 11/03/22 07:00 Temperature 97.9 F 97.8 F 98 F Pulse Rate [Right Pulse Oximeter] 57 L 65 71 Respiratory Rate 16 16 12 Blood Pressure [Le ft Arm] 124/63 131/73 123/64 Blood Pressure [Le ft Upper Arm] Blood Pressure [Ri ght Upper Arm] Pulse Oximetry 97 95 94 Oxygen Delivery Me thod Room Air Room Air Room Air 11/03/22 07:00 Temperature Pulse Rate [Right Pulse Oximeter] 71 Respiratory Rate 12 Blood Pressure [Le ft Arm] Blood Pressure [Le ft Upper Arm] Blood Pressure [Ri ght Upper Arm] Pulse Oximetry Oxygen Delivery Me thod Progress Note: A&P Assessment and plan (1) Fecal impaction: Problem details: To episodes of diarrhea overnight. Appears to be fairly well cleaned out. Needs aggressive and long-term management of constipation. Senna, MiraLax, Metamucil to achieve at least 1 soft stool without straining every day. Status: Acute (2) Pneumatosis coli: Problem details: Associated with constipation. No symptoms today. Status: Acute (3) Acute urinary retention: Problem details: Associated with constipation. Choudhary catheter placed with 1000 mL of residual urine. Keep Choudhary catheter in until next week. Trial of voiding at the clinic. Aggressively treat constipation, add Flomax and trial of voiding next week. Status: Acute Plan Brody is a 76-year-old male who was admitted after fecal disimpaction yesterday. He is doing well overall. There was pneumatosis of the rectum, however he is nontoxic-appearing and I do not have concern for significant ischemia. He may have a small amount of blood in his bowel movements. His last colonoscopy was in 2016 and in the absence of a mass on imaging and exam at this point, as long as he does not have continued issues going forward he can decide as to whether not he would like to have another colonoscopy. -he is going to discharge home on a bowel regimen -a trial of void in clinic next week
[2022-11-03 11:27] VITALS: RESP 12; TEMP 36.6
--- NOTE | 2022-11-03 12:07 | PC.NURSE ---
Discharge: Patient pleasant and cooperative. Patient vitally stable, lungs clear, BS WNL, IV removed, catheter intact. Patient independent in room. Patient denied pain. Patient showered. Patient's hernandez bag switched over to leg bag, and new hernandez bag given to patient. Patient signed belongings sheet and discharge form. Patient had no further questions regarding discharge. Patient left the floor by foot at 1150 with and belongings.
== END 2022-11-03 11:50 | disposition home or self-care (01) ==
LOC: ED 17:39 → MEDSURG 20:44
PROVIDERS: Admitting Provider Family Medicine; Emergency Provider Family Medicine; PCP Family Medicine; Visit Provider Family Medicine
DX: R33.8 Other retention of urine (principal); K56.41 Fecal impaction; K63.89 Other specified diseases of intestine; K62.89 Other specified diseases of anus and rectum; R10.9 Unspecified abdominal pain; Z46.6 Encounter for fitting and adjustment of urinary device; K40.90 Unilateral inguinal hernia, without obstruction or gangrene, not specified as recurrent; I25.10 Atherosclerotic heart disease of native coronary artery without angina pectoris; K21.9 Gastro-esophageal reflux disease without esophagitis; I10 Essential (primary) hypertension; Z90.49 Acquired absence of other specified parts of digestive tract
CPT/HCPCS: 36415; 51702; 74177; 80048; 80076; 81001; 85025; 86140; 87635; 93005; 96360; 96361; 99284; 99285; A9270; G0378; G0379; J7030; Q9967

== ENCOUNTER 2022-11-04 16:57 | Emergency (ER) | payer MEDICARE, SELFPAY ==
[2022-11-04 17:12] VITALS: BP 149/75; PULSE 76; RESP 18; TEMP 36.5; O2SAT 97; BMI 23.1
--- NOTE | 2022-11-04 18:19 | ED.GENADULT ---
HPI - General Adult General Chief complaint: Urogenital Problems, Male Stated complaint: Blood in urine Time Seen by Provider: 11/04/22 17:45 Source: patient Mode of arrival: ambulatory Limitations: no limitations History of Present Illness HPI narrative: 76-year-old male coming in today concerned about hematuria. Patient had a Choudhary placed the 14th secondary to urinary retention secondary to fecal impaction. Everything was fine till today he noticed some pink tinged urine in his bag. He went to the urgent care where he had a urinalysis done-this did show moderate amount of blood with 12-25 RBCs present. He was given Bactrim and discharged home. Since then he has noticed that the urine has gotten darker so he comes back in for a re-evaluation. Denies any chest pain, shortness of breath, dizziness or lightheadedness. He is not diaphoretic or nauseated. He states that he has some suprapubic discomfort that is not necessarily new any also has a little bit of discomfort at the tip of the penis. There is no penile discharge or bleeding present. Patient does take Plavix. Related Data Home Medications Medication Instructions Recorded Confirmed clopidogrel 75 mg tablet 75 mg PO DAILY 06/21/22 11/04/22 metoprolol succinate 25 mg 25 mg PO DAILY 06/21/22 11/04/22 tablet,extended release 24 hr nitroglycerin 0.4 mg sublingual 0.4 mg sublingual Q5M PRN 06/21/22 11/04/22 tablet pantoprazole 20 mg tablet,delayed 20 mg PO .before meals 06/21/22 11/04/22 release sildenafil 100 mg tablet 100 mg PO Q24H PRN 06/21/22 11/04/22 lisinopril 5 mg tablet 5 mg PO DAILY 11/02/22 11/04/22 rosuvastatin 40 mg tablet 40 mg PO HS 11/02/22 11/04/22 Previous Rx's Medication Instructions Recorded polyethylene glycol 3350 17 gram 17 g PO DAILY #100 ea 11/03/22 oral powder packet (Miralax) psyllium husk (with sugar) 3.4 1 tbsp PO DAILY #30 ea 11/03/22 gram oral powder packet (Metamucil (with sugar)) sennosides 8.6 mg-docusate sodium 2 tab PO BID #100 tabs 11/03/22 50 mg tablet (Stool Softener-Laxative) tamsulosin 0.4 mg capsule 0.4 mg PO HS #30 caps 11/03/22 Allergies Allergy/AdvReac Type Severity Reaction Status Date / Time amoxicillin Allergy Verified 11/04/22 17:17 Penicillins Allergy Verified 11/04/22 17:17 Review of Systems Status of ROS: Reports: 10 or more systems reviewed and unremarkable except as noted in History and below [facility] Medical History CAD (coronary artery disease) GERD (gastroesophageal reflux disease) Hypertension NSTEMI (non-ST elevated myocardial infarction) Sensorineural hearing loss (SNHL) of both ears Spondylolysis of lumbar region Surgical History S/P appendectomy S/P cataract extraction S/P cholecystectomy S/P lateral meniscectomy of left knee S/P right inguinal hernia repair Social History Narrative: Nonsmoker, alcohol 3 times a week. 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 Code status is full. Highest level of school completed/degree received: some college, no degree Smoking Status: Never smoker How often do you have a drink containing alcohol: 2-3 times a week Alcohol type: wine and hard liquor AUDIT-C Alcohol total score: 3 Non-prescribed substance use: denies use Caffeine: No service: No Exam Narrative: Exam Narrative: Well-nourished well-developed patient in no acute distress. Alert and oriented. Answers questions appropriately. Mood and affect are appropriate. Thoughts are goal oriented and rational. No tangential or magical thinking noted. Patient speaks in full sentences without needing to catch his breath. Does not appear ill or toxic. HEENT: Normocephalic atraumatic. Pupils are equally round reactive to light. Extraocular muscles are intact. Conjunctivae are moist without any icterus noted. Cardiovascular: Heart is regular rate and rhythm S1 and S2 are present without any murmurs. Lungs: Clear to auscultation bilaterally no wheezes rhonchi or rales are appreciated. Abdomen: Soft and nontender nondistended with normal bowel sounds. No guarding or rebound. Skin: Well perfused without any obvious rashes. Patient has Choudhary catheter in place, his bag has pink, clear urine in it. Const: Vital Signs, click to edit/add: Vital Signs - 24 hr 11/04/22 17:12 Temperature 97.7 F Pulse Rate [Pulse Oximeter] 76 Respiratory Rate 18 Blood Pressure [Ri ght Upper Arm] 149/75 H Pulse Oximetry 97 Oxygen Delivery Me thod Room Air Course Course Hospital Course: Did check a hemoglobin which is normal at above 14. Vital Signs Vital signs: Initial Vital Signs Temperature 97.7 F 11/04/22 17:12 Temperature Source Temporal Artery Scan 11/04/22 17:12 Pulse Rate 76 11/04/22 17:12 Pulse Rhythm 11/04/22 17:12 Respiratory Rate 18 11/04/22 17:12 Blood Pressure 149/75 H 11/04/22 17:12 Blood Pressure Mean 99 11/04/22 17:12 Blood Pressure Position Sitting 11/04/22 17:12 Pulse Oximetry 97 11/04/22 17:12 Oxygen Delivery Method 11/04/22 17:12 Vital Signs Temperature 97.7 F 11/04/22 17:12 Pulse Rate 76 11/04/22 17:12 Respiratory Rate 18 11/04/22 17:12 Blood Pressure 149/75 H 11/04/22 17:12 Pulse Oximetry 97 11/04/22 17:12 Oxygen Delivery Method 11/04/22 17:12 Temperature 97.7 F 11/04/22 17:12 Pulse Rate 76 11/04/22 17:12 Respiratory Rate 18 11/04/22 17:12 Blood Pressure 149/75 H 11/04/22 17:12 Pulse Oximetry 97 11/04/22 17:12 Oxygen Delivery Method 11/04/22 17:12 Medical Decision Making MDM Narrative Medical decision making narrative: 76-year-old male with hematuria status post Choudhary placement. We discussed that the Choudhary can irritate the wall of the bladder causing some mild bleeding. Given that the urine is pink and clear and his hemoglobin is normal, I do not feel that we need to intervene at this time. We discussed bright red blood in his bag, blood clots, clots causing the Choudhary not to empty correctly - and following up if any of these things happen. He does have an appointment in 5 days to have that Choudhary removed and I think at this time it is okay to keep that appointment. Again, return to the ER if bleeding worsens or if he has any systemic symptoms or pain. Lab Data Lab results reviewed: Yes I reviewed the patient's lab results Labs: Lab Results 11/04/22 Range/Units 18:28 Hgb 14.9 (13.5-17.5) gm/dL Discharge Plan Discharge Clinical Impression: Hematuria Patient Disposition: Home, Self-Care Condition: Stable Instructions: Hematuria (ED) Additional Instructions: Your hemoglobin looked great today at 14.9. Monitor for increasing blood and blood clots. Return to the ER if urine turns bright red or you have clots blocking the Choudhary catheter. Go ahead start your antibiotic. Follow-up on the as scheduled. Stay well hydrated. Prescriptions: No Action lisinopril 5 mg tablet 5 mg PO DAILY Label Comments: new medication has not started yet rosuvastatin 40 mg tablet 40 mg PO HS Metamucil (with sugar) 3.4 gram Powder In Packet 1 tbsp PO DAILY Qty: 30 0RF sennosides-docusate sodium [Stool Softener-Laxative] 8.6-50 mg Tablet 2 tab PO BID Qty: 100 0RF polyethylene glycol 3350 [Miralax] 17 gram Powder In Packet 17 g PO DAILY Qty: 100 0RF tamsulosin 0.4 mg Capsule 0.4 mg PO HS Qty: 30 0RF clopidogrel 75 mg tablet 75 mg PO DAILY sildenafil 100 mg tablet 100 mg PO Q24H PRN Label Comments: TAKE 1 TABLET BY MOUTH EVERY DAY. TAKE 30MIN TO 4 HOURS BEFORE SEXUAL ACTIVITY pantoprazole 20 mg tablet,delayed release (DR/EC) 20 mg PO .before meals nitroglycerin 0.4 mg tablet, sublingual 0.4 mg sublingual Q5M PRN metoprolol succinate 25 mg tablet extended release 24 hr 25 mg PO DAILY Follow Up/Referrals: Yang Eng MD [Primary Care Provider] - Stand Alone Forms: [place] Info Instructions
[2022-11-04 18:51] LABS: Hemoglobin* 14.9 gm/dL (13.5-17.5)
== END 2022-11-04 19:23 | disposition home or self-care (01) ==
PROVIDERS: Emergency Provider Family Medicine; PCP Family Medicine
DX: R31.9 Hematuria, unspecified (principal)
CPT/HCPCS: 36415; 85018; 99283; 99284

== ENCOUNTER 2022-12-06 06:15 | Day surgery (SDC) | payer MEDICARE, SELFPAY ==
[2022-12-06] VITALS (14 sets, daily range): BP systolic 120–138; BP diastolic 60–79; PULSE 52–72; RESP 16; TEMP 36.1–36.6; O2SAT 95–99; BMI 25.4
[2022-12-06] MEDS: SODIUM CHLORIDE 0.9 % (FLUSH) 10 ML SYRINGE IVF (06:30)
[2022-12-06] MEDS: LACTATED RINGERS 1000 ML 1,000 ML 100 ML IV ×2 (06:30→09:48)
[2022-12-06] MEDS: CLINDAMYCIN 900 MG/50 ML-D5W IVPB (07:37)
[2022-12-06] MEDS: LIDOCAINE 1 % PF 30 ML INJECTION (09:22)
[2022-12-06] MEDS: BUPIVACAINE 0.25% 30 ML INJECTION (09:22)
--- NOTE | 2022-12-06 09:40 | W.ANESCHARGE ---
Anesthesia Charges Start Date/Time Anesthesia Start Date: 12/06/22 Anesthesia Start Time: 07:29 Stop Date/Time Anesthesia Stop Date: 12/06/22 Anesthesia Stop Time: 09:41 Summary Emergency: No Extremes of Age: Over 69-CPT 11432
--- NOTE | 2022-12-06 09:42 | P.GSOP_ITS ---
Operative Note Date of procedure: 12/06/22 Pre-op diagnosis: 1. Left inguinal hernia 2. Epigastric hernia Post-op diagnosis: Same Type of Procedure: 1. Open left inguinal hernia repair with placement of mesh 2. Epigastric hernia repair with placement of mesh Procedure Description: After discussing the risks and benefits of the procedure, the patient signed informed consent.? The operative site was marked and the patient was brought to the operating room and placed on the operating table in supine position.? Care was taken to pad the patient's pressure points.?? The patient was then intubated by anesthesia.?? The operative site was then prepped and draped in the usual sterile fashion.? A time-out was then performed. Local anesthetic was injected into the skin and subcutaneous tissue overlying the inguinal canal. An oblique incision would was made over the external ring. Dissection was carried down into the subcutaneous tissue using cautery until the external oblique fascia was encountered. This was cleared off. The external ring was identified and after injection of more local anesthetic, the external oblique was incised using a knife. This was extended using the Metzenbaum scissors with care to dissect the underlying cord structures away before cutting. The cord was cleared from the inside of the inguinal canal and looped with a [place] drain. The ilioinguinal nerve was identified within the operative field. This was tied off with 3-0 Vicryl and transected. A large indirect inguinal hernia was identified. The hernia sac was day of dissected off of the cord structures. The hernia sac was then ligated and the proximal and reduced into the abdomen. The piece of polypropylene mesh was obtained and cut to size. This was secured to the pubic tubercle using to interrupted 0 Nurolon suture. Multiple 0 Nurolon sutures were placed interrupted along the inguinal ligament and superiorly along the transversalis fascia securing the tails behind the cord and recreating the internal ring. Wound was examined for hemostasis. The external oblique fascia was then reapproximated with absorbable suture. The wound was then closed in layers including Breanna's fascia and the dermis with the cervical suture. The skin was then closed with a running subcuticular suture. Attention was then directed to the epigastric hernia. A vertical midline incision was made directly over the bulge. Dissection was carried down through subcutaneous tissue. A 2 cm defect was identified in the fascia with incarcerated preperitoneal fat. The fascia was circumferentially cleared off and the preperitoneal fat reduced. Given the size of the defect is a small Ventralex ST mesh was chosen to reinforce repair. The preperitoneal pocket was cleared off with blunt dissection. The mesh was placed within the defect and secured with 2 0 Prolene suture. The fascial defect was then closed with a running 0 Vicryl stitch. Subcutaneous tissue was closed with interrupted 3 0 Vicryl. The skin was closed with a running subcuticular stitch. Dermabond and Sterile dressings were applied. Instrument sponge and needle counts were correct at the end of the case. The patient was woken and taken to the PACU in stable condition. ? ? The patient tolerated the procedure well. Findings: 1. Large left indirect inguinal hernia 2. 2 cm epigastric hernia with incarcerated preperitoneal fat Anesthesia: CHONG Surgeon: Pricila Aburto MD Estimated blood loss (mL): 5 Condition: stable Disposition: PACU
--- NOTE | 2022-12-06 09:51 | W.ANESCHARGE ---
Anesthesia Charges Start Date/Time Anesthesia Start Date: 12/06/22 Anesthesia Start Time: 07:29 Stop Date/Time Anesthesia Stop Date: 12/06/22 Anesthesia Stop Time: 09:41 Summary Emergency: No
[2022-12-06] MEDS: ONDANSETRON 2 MG/ML inj 4 MG IVP (10:33)
[2022-12-06] MEDS: TRAMADOL HCL 50 MG TABLET PO (10:57)
[2022-12-06] MEDS: ACETAMINOPHEN 325 MG TABLET 650 MG PO (11:30)
== END 2022-12-06 11:59 | disposition home or self-care (01) ==
PROVIDERS: PCP Family Medicine; Visit Provider Surgery
PROC: (CPT 49505; principal; 2022-12-06 07:30)
DX: K40.90 Unilateral inguinal hernia, without obstruction or gangrene, not specified as recurrent (principal); K43.6 Other and unspecified ventral hernia with obstruction, without gangrene
CPT/HCPCS: 49505; 49592; 00752; 99100; A9270; C1781; J0330; J2001; J2370; J2405; J2704; J3010; J3490; J7120; S0077

== ENCOUNTER 2023-09-11 15:15 | Outpatient (RCR) | payer MEDICARE, SELFPAY | END 2023-12-14 15:29 | disposition home or self-care (01) | PROVIDERS: PCP Family Medicine; Visit Provider Family Medicine | DX: M17.12 Unilateral primary osteoarthritis, left knee (principal); M16.12 Unilateral primary osteoarthritis, left hip; M25.552 Pain in left hip; M25.562 Pain in left knee; M70.62 Trochanteric bursitis, left hip; M62.81 Muscle weakness (generalized); Z51.89 Encounter for other specified aftercare | CPT/HCPCS: 97110; 97140; 97161 ==

== ENCOUNTER 2024-03-02 16:05 | Emergency (ER) | payer MEDICARE, SELFPAY ==
[2024-03-02 16:11] VITALS: BP 131/79; PULSE 61; RESP 16; TEMP 36.6; O2SAT 95; BMI 24.4
[2024-03-02 16:18] VITALS: BP 131/79
[2024-03-02 16:23] VITALS: O2SAT 99
[2024-03-02] MEDS: 0.9 % SODIUM CHLORIDE 500 ML 500 ML IV (16:37)
[2024-03-02 16:39] LABS: Basophils Absolute Auto 0.03 K/uL (0.00-0.30); Basophils Percent Auto 0.4 % (0.0-3.0); Eosinophils Absolute Auto 0.17 K/uL (0.00-0.50); Eosinophils Percent Auto 2.5 % (0.0-7.0); Hematocrit 38.2 % (37.0-53.0); Hemoglobin* 12.9 gm/dL (13.5-17.5); Immature Granulocytes Abs Auto 0.01 K/uL (0.00-0.30); Immature Granulocytes Pct Auto 0.1 %; Mean Corpuscular HGB Conc 34 gm/dL (32-36); Mean Corpuscular Hemoglobin 33 pg (26-34); Mean Corpuscular Volume 97 fL (80-100); Monocytes Percent Auto 8.9 % (0.0-11.0); Neutrophils Absolute Auto 3.24 K/uL (1.7-7.0); Neutrophils Percent Auto 48.1 % (42.0-72.0); Platelet Count* 180 K/uL (140-440); RDW Coefficient of Variation % 12.1 % (11.5-15.5); Red Blood Count 3.92 m/uL (4.30-5.90); White Blood Count* 6.75 K/uL (4.50-11.00)
[2024-03-02 16:40] VITALS: BP 109/64; BP 116/58; BP 126/66; PULSE 57; PULSE 61; PULSE 66
--- NOTE | 2024-03-02 16:45 | ED_ITS ---
HPI - General Adult General Chief complaint: Arrhythmia/Palpitations Stated complaint: irregular heartbeats Time Seen by Provider: 03/02/24 16:11 Source: patient Mode of arrival: ambulatory Limitations: no limitations History of Present Illness HPI narrative: [age] year male coming in today complaining of feeling lightheaded today. He states that any time he had to bend over and stand back up again he felt very lightheaded. He denies the room spinning. He denies nausea or vomiting. He states that he went outside to work on his truck for about 45 minutes and when he came back in the house he started feeling lightheaded again and started seeing spots in his vision. He had to sit down before he felt better. He noticed that when he sat down he also checked his pulse and his pulse was irregular. He states that he would have regular beats and then the slight pause before the regular beats would kick in again. He is quite concerned about this as he had an FL approximately 2 years ago. He denies any chest pain. He is not short of breath. He denies any abdominal discomfort, or diaphoresis. He denies a headache, blurry vision or double vision. No ringing in his ears. Related Data Home Medications Medication Instructions Recorded Confirmed clopidogrel 75 mg tablet 75 mg PO DAILY 06/21/22 12/06/22 metoprolol succinate 25 mg 25 mg PO DAILY 06/21/22 12/06/22 tablet,extended release 24 hr nitroglycerin 0.4 mg sublingual 0.4 mg sublingual Q5M PRN 06/21/22 12/06/22 tablet pantoprazole 20 mg tablet,delayed 20 mg PO .before meals 06/21/22 12/06/22 release sildenafil 100 mg tablet 100 mg PO Q24H PRN 06/21/22 12/06/22 lisinopril 5 mg tablet 5 mg PO DAILY 11/02/22 12/06/22 rosuvastatin 40 mg tablet 40 mg PO HS 11/02/22 12/06/22 Previous Rx's Medication Instructions Recorded polyethylene glycol 3350 17 gram 17 g PO DAILY #100 ea 11/03/22 oral powder packet (Miralax) psyllium husk (with sugar) 3.4 1 tbsp PO DAILY #30 ea 11/03/22 gram oral powder packet (Metamucil (with sugar)) sennosides 8.6 mg-docusate sodium 2 tab PO BID #100 tabs 11/03/22 50 mg tablet (Stool Softener-Laxative) tamsulosin 0.4 mg capsule 0.4 mg PO HS #30 caps 11/03/22 sennosides 8.6 mg capsule (senna) 8.6 mg PO DAILY PRN constipation 12/06/22 #90 caps tramadol 50 mg tablet 50 mg PO Q6H PRN pain #20 tabs 12/06/22 Allergies Allergy/AdvReac Type Severity Reaction Status Date / Time amoxicillin Allergy Verified 12/06/22 06:22 oxycodone Allergy Hallucinati Verified 12/06/22 06:22 ng Penicillins Allergy Verified 12/06/22 06:22 Review of Systems Status of ROS: Reports: 10 or more systems reviewed and unremarkable except as noted in History and below [facility] Medical History Health care directive on file ?Z78.9 - Other specified health status (ICD-10) GERD (gastroesophageal reflux disease) ?K21.9 - Gastro-esophageal reflux disease without esophagitis (ICD-10) Hypertension ?I10 - Essential (primary) hypertension (ICD-10) NSTEMI (non-ST elevated myocardial infarction) ?I21.4 - Non-ST elevation (NSTEMI) myocardial infarction (ICD-10) Spondylolysis of lumbar region ?M43.06 - Spondylolysis, lumbar region (ICD-10) Sensorineural hearing loss (SNHL) of both ears ?H90.3 - Sensorineural hearing loss, bilateral (ICD-10) CAD (coronary artery disease) ?I25.10 - Atherosclerotic heart disease of [place] coronary artery without angina pectoris (ICD-10) Surgical History S/P appendectomy ?Z90.49 - Acquired absence of other specified parts of digestive tract (ICD- 10) S/P lateral meniscectomy of left knee ?Z98.890 - Other specified postprocedural states (ICD-10) S/P right inguinal hernia repair ?Z98.890 - Other specified postprocedural states (ICD-10) ?Z87.19 - Personal history of other diseases of the digestive system (ICD-10) S/P cataract extraction ?Z98.49 - Cataract extraction status, unspecified eye (ICD-10) S/P cholecystectomy ?Z90.49 - Acquired absence of other specified parts of digestive tract (ICD- 10) Social History Narrative: Nonsmoker, alcohol 3 times a week. 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 Code status is full. Highest level of school completed/degree received: some college, no degree Smoking Status: Former smoker What tobacco products do you use: cigarettes Smoking quit date/years: >15 years ago Do you use any of these nicotine containing products: None How often do you have a drink containing alcohol: 2-3 times a week Alcohol type: wine and hard liquor How many standard drinks containing alcohol do you have on a typical day: 1 or 2 How often do you have six or more drinks on one occasion: Never AUDIT-C Alcohol total score: 3 Non-prescribed substance use: denies use Caffeine: Yes (1 cup coffee daily) service: No Exam Narrative: Exam Narrative: Well-nourished well-developed patient in no acute distress. Alert and oriented. Answers questions appropriately. Mood and affect are appropriate. Thoughts are goal oriented and rational. No tangential or magical thinking noted. Patient speaks in full sentences without needing to catch his breath. Does not appear ill or toxic. Is calmly reading a book in bed when I walk in the room. HEENT: Normocephalic atraumatic. Pupils are equally round reactive to light. Extraocular muscles are intact. Conjunctivae are moist without any icterus no bennett. Moist mucous membranes. Posterior pharynx is normal. Neck is soft. Patient has no nystagmus either horizontally or vertically. Cardiovascular: Heart is regular rate and rhythm S1 and S2 are present with a soft 1/6 systolic murmur. Lungs: Clear to auscultation bilaterally no wheezes rhonchi or rales are appreciated. Patient takes deep breaths without any discomfort. Abdomen: Soft and nontender nondistended with normal bowel sounds. Extremities: Bilateral lower extremities are without edema. Normal DP and PT pulses. Skin: Well perfused without any obvious rashes. Strength is 5/5 of the upper and lower extremities. Cranial nerves 3-12 grossly intact. Gait is normal. Patient does have orthostatic hypotension with his blood pressure going from 126/66 sitting to 109/69 standing. I do monitor the body art technician during our examination and conversation, he does have PVCs. Const: Vital Signs, click to edit/add: Vital Signs - 24 hr 03/02/24 16:11 03/02/24 16:18 03/02/24 16:23 Temperature 97.9 F Pulse Rate Pulse Rate [Pulse Oximeter] 61 Pulse Rate [orthos tatic lying Pulse Oximeter] Pulse Rate [orthos tatic sitting Puls e Oximeter] Pulse Rate [orthos tatic standing Pul se Oximeter] Respiratory Rate 16 Blood Pressure 131/79 Blood Pressure [Ri ght Upper Arm] 131/79 Blood Pressure [or thostatic lying Ri ght Arm] Blood Pressure [or thostatic sitting Right Arm] Blood Pressure [or thostatic standing Right Arm] Pulse Oximetry 95 99 Oxygen Delivery Me thod Room Air 03/02/24 16:40 03/02/24 19:00 Temperature Pulse Rate 57 L Pulse Rate [Pulse Oximeter] Pulse Rate [orthos tatic lying Pulse Oximeter] 57 L Pulse Rate [orthos tatic sitting Puls e Oximeter] 66 Pulse Rate [orthos tatic standing Pul se Oximeter] 61 Respiratory Rate 14 Blood Pressure 138/75 Blood Pressure [Ri ght Upper Arm] Blood Pressure [or thostatic lying Ri ght Arm] 116/58 L Blood Pressure [or thostatic sitting Right Arm] 126/66 Blood Pressure [or thostatic standing Right Arm] 109/64 Pulse Oximetry 96 Oxygen Delivery Me thod Course Course ED Course: EKG, read by me, shows normal sinus rhythm with PVCs, pulse is 61. IV is established patient receives 500 mL of normal saline. A CBC shows mild anemia with a hemoglobin of 12.9, normal white cell count platelet count. Sodium slightly low 132, normal potassium at 4.2. Creatinine slightly elevated at 1.6, BUN is 26. After receiving fluids, repeat orthostatic vital signs were rechecked: Improved. See documentation. Discussed lab results with the patient: Patient tells me that he has had an elevated creatinine and decreased GFR and a fall while now. He is not sure what those numbers are. Vital Signs Vital signs: Initial Vital Signs Temperature 97.9 F 03/02/24 16:11 Temperature Source Temporal Artery Scan 03/02/24 16:11 Pulse Rate 61 03/02/24 16:11 Pulse Rhythm Regular 03/02/24 16:11 Respiratory Rate 16 03/02/24 16:11 Blood Pressure 131/79 03/02/24 16:11 Blood Pressure Mean 96 03/02/24 16:11 Blood Pressure Position Sitting 03/02/24 16:11 Pulse Oximetry 95 03/02/24 16:11 Oxygen Delivery Method Room Air 03/02/24 16:11 Vital Signs Temperature 97.9 F 03/02/24 16:11 Pulse Rate 61 03/02/24 16:11 Respiratory Rate 16 03/02/24 16:11 Blood Pressure 131/79 03/02/24 16:11 Pulse Oximetry 95 03/02/24 16:11 Oxygen Delivery Method Room Air 03/02/24 16:11 Temperature 97.9 F 03/02/24 16:11 Pulse Rate 57 L 03/02/24 19:00 Respiratory Rate 14 03/02/24 19:00 Blood Pressure 138/75 03/02/24 19:00 Pulse Oximetry 96 03/02/24 19:00 Oxygen Delivery Method Room Air 03/02/24 16:11 Medications Administered Medications: Discontinued Medications Generic Name Dose Route Start Last Admin Trade Name Freq PRN Reason Stop Dose Admin Sodium Chloride 500 mls @ 500 mls/hr 03/02/24 16:23 03/02/24 17:29 0.9 % Sodium Chloride 500 Ml IV 03/02/24 17:22 Infused .Q1H ONE Infusion Medical Decision Making MDM Narrative Medical decision making narrative: Dehydration, hyponatremia, orthostatic hypotension. Recommend increasing daily fluid intake. I would like for him to follow up with his primary care physician on Monday to have labs rechecked. Patient was in agreement and had no other questions. Was feeling better after fluids. Lab Data Lab results reviewed: Yes I reviewed the patient's lab results Labs: Lab Results 03/02/24 Range/Units 16:32 WBC 6.75 (4.50-11.00) K/uL RBC 3.92 L (4.30-5.90) m/uL Hgb 12.9 L (13.5-17.5) gm/dL Hct 38.2 (37.0-53.0) % MCV 97 (80-100) fL MCH 33 (26-34) pg MCHC 34 (32-36) gm/dL RDW Coeff of Joel 12.1 (11.5-15.5) % Plt Count 180 (140-440) K/uL Neut % (Auto) 48.1 (42.0-72.0) % Lymph % (Auto) 40.0 (20-44) % Rowan % (Auto) 8.9 (0.0-11.0) % Eos % (Auto) 2.5 (0.0-7.0) % Baso % (Auto) 0.4 (0.0-3.0) % Neut # (Auto) 3.24 (1.7-7.0) K/uL Lymph # (Auto) 2.70 (0.90-2.90) K/uL Rowan # (Auto) 0.60 (0.00-0.90) K/UL Eos # (Auto) 0.17 (0.00-0.50) K/uL Baso # (Auto) 0.03 (0.00-0.30) K/uL Abs Immat Gran (auto) 0.01 (0.00-0.30) K/uL Imm/Tot Granulo (auto) 0.1 % Sodium 132 L (135-149) mmol/L Potassium 4.2 (3.6-5.1) mmol/L Chloride 105 (96-114) mmol/L Carbon Dioxide 24 (20-32) mmol/L Anion Gap 3 L (7-15) mEq/L BUN 26 (7-30) mg/dL Creatinine 1.6 H (0.5-1.5) mg/dL Estimated Creat Clear 41.09 Estimated GFR 44 ml/min Glucose 85 (60-115) mg/dL Calcium 8.9 (8.4-10.6) mg/dL Discharge Plan Discharge Clinical Impression: Asymptomatic premature ventricular contractions, Creatinine elevation, Hyponatremia, Dehydration Patient Disposition: Home, Self-Care Condition: Improved Additional Instructions: Recommend you follow-up with your primary care provider on Monday to have your kidney function and sodium levels checked. He will be sent home today with your lab results from today so you can bring that to your primary care provider next week. I would also recommend that you increase your daily water intake. You should also repeat your blood pressure when you see your primary care provider. Prescriptions: No Action lisinopril 5 mg tablet 5 mg PO DAILY Patient Comments: new medication has not started yet rosuvastatin 40 mg tablet 40 mg PO HS Metamucil (with sugar) 3.4 gram Powder In Packet 1 tbsp PO DAILY Qty: 30 0RF sennosides-docusate sodium [Stool Softener-Laxative] 8.6-50 mg Tablet 2 tab PO BID Qty: 100 0RF polyethylene glycol 3350 [Miralax] 17 gram Powder In Packet 17 g PO DAILY Qty: 100 0RF tamsulosin 0.4 mg Capsule 0.4 mg PO HS Qty: 30 0RF tramadol 50 mg tablet 50 mg PO Q6H PRN (Reason: pain) Qty: 20 0RF senna 8.6 mg capsule 8.6 mg PO DAILY PRN (Reason: constipation) Qty: 90 0RF clopidogrel 75 mg tablet 75 mg PO DAILY sildenafil 100 mg tablet 100 mg PO Q24H PRN Patient Comments: TAKE 1 TABLET BY MOUTH EVERY DAY. TAKE 30MIN TO 4 HOURS BEFORE SEXUAL ACTIVITY pantoprazole 20 mg tablet,delayed release (DR/EC) 20 mg PO .before meals nitroglycerin 0.4 mg tablet, sublingual 0.4 mg sublingual Q5M PRN metoprolol succinate 25 mg tablet extended release 24 hr 25 mg PO DAILY Follow Up/Referrals: Yang Eng MD [Primary Care Provider] - Stand Alone Forms: [facility] Info Instructions
[2024-03-02 16:53] LABS: Slide Review Reflex No
[2024-03-02 17:20] LABS: Chloride* 105 mmol/L (96-114); Potassium* 4.2 mmol/L (3.6-5.1); Sodium* 132 mmol/L (135-149)
[2024-03-02 17:23] LABS: Anion Gap 3 mEq/L (7-15); Blood Urea Nitrogen* 26 mg/dL (7-30); Calcium* 8.9 mg/dL (8.4-10.6); Carbon Dioxide* 24 mmol/L (20-32); Creatinine* 1.6 mg/dL (0.5-1.5); Est. Creatinine Clearance* 41.09; Estimated Glomerular Filt Rate 44 ml/min; Glucose* 85 mg/dL (60-115)
[2024-03-02 19:00] VITALS: BP 138/75; PULSE 57; RESP 14; O2SAT 96
[2024-03-02 19:42] VITALS: BP 131/79; PULSE 61; RESP 14; TEMP 36.6
--- OUTSIDE RECORDS SUMMARY | 2024-04-08 16:23 | XMS_ITS | Clinical Summary ---
Author Name Unknown Organization [employer] Address [place], [place] [address] Care Team Providers Care Puttying And Calking Supervisor Name Role Phone Sridhar Murry Unavailable [phone] Concepcion Canseco MD Unavailable [phone] Camila Myers MD Unavailable + Yang Eng MD Primary Care Provider [phone] Allergies Active Allergy Reactions Criticality Noted Date Comments Amoxicillin Rash 10/01/2007 Oxycodone Hallucinations 12/11/2008 Penicillins Rash 07/26/2007 Medications Medication Sig Dispensed Refills Start Date End Date Status fexofenadine (MILAGRO) 60 mg tablet Take 60 mg by mouth 2 times daily if needed. 0 9 Active sennosides (SENNA) 8.6 mg tabletIndications :Constipation, acute Take 8.6 mg by mouth once daily if needed for Constipation (at nighttime). 0 0 Active aspirin chewable 81 mg chewable tablet 2 Active nitroglycerin (NITROSTAT) 0.4 mg sublingual tabletIndications :NSTEMI (non-ST elevation myocardial infarction) (HC) Place 1 Tablet (0.4 mg) under the tongue every 5 minutes if needed for Chest Pain. 25 Tablet 5 2 Active pantoprazole (PROTONIX) 20 mg tabletIndications :Chronic GERD Take 1 Tablet (20 mg) by mouth once daily before a meal. 30 Tablet 11 2 Active psyllium husk (MetamuciL) 3.4 gram/5.4 gram powd Mix in liquid then take by mouth once daily. 2 Active polyethylene glycoL (Miralax) 17 gram/scoop powder Mix 17 g in liquid then take by mouth once daily. 2 Active durable medical equipment (DME)Indications: Callus of foot Custom off loading inserts for callus left foot sub 2nd metatarsal head 1 Each 3 Active lisinopriL (PRINIVIL; ZESTRIL) 5 mg tabletIndications :Essential hypertension Take 1 Tablet (5 mg) by mouth every morning. 100 Tablet 1 4 Active tamsulosin (FLOMAX) 0.4 mg capsuleIndication s:BPH with urinary obstruction TAKE 2 CAPSULES BY MOUTH AT BEDTIME 200 Capsule 2 4 Active metoprolol succinate (TOPROL XL) 25 mg Sustained-Release tabletIndications :NSTEMI (non-ST elevation myocardial infarction) (HC) TAKE 1 TABLET BY MOUTH ONCE DAILY 100 Tablet 1 4 Active metoprolol succinate (TOPROL XL) 25 mg Sustained-Release tabletIndications :NSTEMI (non-ST elevation myocardial infarction) (HC) TAKE 1 TABLET BY MOUTH ONCE DAILY 100 Tablet 4 03/17/20 24 Discontinued Active Problems Problem Noted Date Diagnosed Date Other hyperlipidemia 02/21/2022 NSTEMI (non-ST elevation myocardial infarction) 02/21/2022 Overview: This occurred on 02/11/2022. No culprit lesion found on Angiogram. No stents were placed. He was told to stay on the Plavix for 1 year. I talked to the [facility] team and they recommend not interrupting aspirin and plavix for one full year. Unless surgery would operate on Mike while you are on those two drugs (very unlikely) you will have to wait until 1 year after you started the aspirin and plavix to have surgery. Chronic GERD 02/21/2022 Essential hypertension 02/21/2022 Tinnitus, bilateral 01/13/2015 Routine adult health maintenance 10/29/2014 Overview: Colonoscopy 10/2014 diverticulosis no follow up needed Spondylolysis of lumbar region 01/29/2010 L5-S1 Disk Protrusion 01/29/2010 Sensorineural hearing loss, bilateral 01/12/2009 Encounters Date Type Department Care Team Description 04/08/2024 1:00 PM CDT Orders Only [facility] [address] [facility] [place] [address] Lab, [place] [facility] 04/08/2024 Travel 04/03/[address] [place] [address] Jarrod Hawkins MD Results (Echo) 04/02/2024 Telephone [facility] [address] [place] [address] Yang Eng MD Results 04/01/2024 1:00 PM CDT Ancillary Procedure [facility] [address] [place] [address] 04/01/2024 Travel 03/27/2024 Travel 03/16/2024 Refill [facility] [address] [place] [address] Yang Eng MD Refill Request (Metoprolol Succinate) 03/06/2024 4:00 PM CDT Office Visit [address] [place] [address] 03/05/2024 3:35 PM CDT Office Visit [facility] [address] [place] [address] Yang Eng MD ER Follow up ([facility] - heart arhythmia and dizziness/Patient reports feeling better now) 03/05/2024 Travel 03/04/2024 Orders Only [facility] Scanner 1 scan: (1-Ord) INCOMING RECORDS-EKG, [facility], 03/04/2024 03/04/2024 Orders Only [facility] Scanner 1 scan: (1-Ord) INCOMING RECORDS-LABS, [facility], 03/04/2024 02/17/2024 Refill [facility] [address] [place] [address] Yang Eng MD Refill Request (Tamsulosin) 02/06/2024 1:05 PM CDT Office Visit [facility] [address] [place] [address] [address] Yang Eng MD Follow Up (Go over lab results ); Medication Management (Discuss changing cholesterol med - having muscle pain) 02/05/2024 Travel 02/02/2024 1:30 PM CDT Orders Only [facility] [address] [place] [address] Lab, [place] [facility] 02/02/2024 Travel 01/30/2024 Refill [facility] [address] [place] [address] [address] Yang Eng MD Refill Request (Lisinopril) from Last 3 Months Immunizations Name Administration Dates Next Due AMB INFLUENZA IIV3 (AGE 65+ YRS) PF (Flu Clinic Only) 09/10/2019 AMB Influenza, IIV3 (Age >=3 years)(Flu Clinic Only) 10/10/2012,09/14/2011,09/24/2010,2007 Amb Influenza, Inact (High-d ose) (Flu Clinic Only) 09/17/2016,09/12/2014 Amb Influenza, Inactivated A IIV4 (Age 65+ Years) Preserv Free 08/31/2020 COVID-19 vaccine (Validus-IVC-Bio NTech 30mcg/0.3mL) 12YO+ BIVALENT PF, MDV 07/07/2023,09/19/2022 COVID-19 vaccine (Pfizer-Bio NTech 30mcg/0.3mL) 12YO+ MARCO-SUCROSE PF, MDV 04/08/2022 COVID-19 vaccine (Pfizer-Bio NTech 30mcg/0.3mL) PF, MDV 09/22/2021,01/14/2021,12/24/2020 Influenza, High-dose Inactivated 09/17/2016,09/21,09/12/2014 Influenza, High-dose Quadriv alent Inactivated 11/09/2021 Influenza, IIV3 (Age 6-35 mos) 09/14/2011 Influenza, IIV3 (Age >=3 years) 09/03/20 13,10/10/2012,09/24/2010,2008,09/22/2008,10/01/2007,09/29/2006,1 11/28/2004,09/16/2003 Influenza, Inactivated AIIV4 (Age 65+ Years) Preserv Free 09/14/2023,09/19/2022 Influenza, Inactivated IIV3 (Age 65+ Years) Preserv Free 09/05/2018,11/02/2017 Pneumococcal Poly,23-Valent (Pneumovax) 12/14/2009 Pneumococcal conj 13-Valent (Prevnar 13) 12/26/2014 Td (Age >=7 Years) 08/03/2000 Td, Preservative Free (age > = 7 Years) 12/14/2009 Tuberculin (PPD) 03/28/2013 Zoster (Shingrix-RZV, recombinant) 07/10/2019,,04/08/2019 Zoster (Zostavax-ZVL, live) 10/01/2007 Family History Medical History Relation Name Comments Other Brother 1 Jose G emphysema and d ied of this at 65 Other Brother 2 Kamran Pacemaker Dementia Father of this at 93. Heart Disease Father 40's Other Sister 1 Ashlee emphysema and d ied of this at 78 Dementia Sister 2 Nancy of Dementi a at 85 Relation Name Status Comments Brother 1 Jose G (Age 65) Brother 2 Kamran Alive Father (Age 91) Mother (Age 44) car accide nt Sister 1 Ashlee (Age 78) Sister 2 Nancy (Age 85) Social History Tobacco Use Types Packs/Day Years Used Date Smoking Tobacco: Never Passive Smoke Exposure: Never Smokeless Tobacco: Never Tobacco Cessation:Counseling Given: Yes Alcohol Use Standard Drinks/Week Comments Yes 1 (1 standard drink = 0.6 oz pur e alcohol) wine / 1 glass a week PHQ-2 Answer Date Recorded PHQ-2 TOTAL SCORE 0 02/27/2023 Social Connections Answer Date Recorded Frequency of Communication with Friends and Fami ly 0 07/06/2023 Financial Resource Strain Answer Date R ecorded Difficulty of Paying Living Expenses 3 07/06/2023 Difficulty of Paying Living Expenses Not on file 07/06/2023 Food Insecurity Answer Date Recorded Worried About Running Out of Food in the Last Ye ar 1 07/06/2023 Transportation Needs Answer Date Record ed Lack of Transportation (Medical) 1 07/06/2023 Housing Stability Answer Date Recorded Unable to Pay for Housing in the Last Year 1 07/06/2023 Sex and Gender Information Value Date Recorded Sex Assigned at Not on file Gender Identity Not on file Sexual Orientation Not on file Obstetrics History Last Filed Vital Signs Vital Sign Reading Time Taken Comments Blood Pressure 134/66 03/05/2024 4:52 PM CDT Pulse 58 03/05/2024 4:03 PM CDT Temperature 36.7 ??C (98 ??F) 03/05/2024 4:03 PM CDT Respiratory Rate 19 11/04/2022 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 Oxygen Saturation 96% 03/05/2024 4:03 PM CDT Inhaled Oxygen Concentration - - Weight 87.1 kg (192 lb) 03/05/2024 4:03 PM CDT Height 182.9 cm (6') 02/06/2024 12:58 PM CDT Body Mass Index 26.04 02/06/2024 12:58 PM CDT Plan of Treatment Upcoming Encounters Date Type Department Care Team (Late st Contact Info) Description 04/12/2024 1:05 PM CDT Office Visit [facility] [address] [place] [address] Yang Eng MD [address] [place] [address] Health Maintenance Due Date Last Done Comments Tdap 1956 Tetanus booster 12/14/2019 12/14/2009, 08/03/2000 COVID-19 vaccine series ( season) 2023 07/07/2023, 09/19/2022, 04/08/2022, Additional history exists Depression screening for age 12+ 02/28/2024 02/27/2023, 06/01/2022, 02/21/2022, Additional history exists Medicare Wellness for age 65+ 02/28/2024, 02/07/2022, 02/05/2021, Additional history exists Influenza for age 65+ 07/21/2024 09/14/2023 , 09/19/2022, 11/09/2021, Additional history exists BMI (ht and wt on same day) for age 18+ 02/05/2025 02/06/2024, 02/27/2023, 12/02/2022, Additional history exists Pneumococcal series for age 65+ Discontinued 5, 12/14/2009 Zoster (shingles) series for age 50+ Completed 07/10/2019, 05/03/2019, 04/08/2019, Additional history exists Hepatitis C screening for ag e 18-79 Completed 02/05/2021 Procedures Procedure Name Priority Date/Time Associated Diagnosis Comments EXTENDED HOLTER Routine 04/04/2024 PVC (premature ventricular contraction) ECHO TTE COMPLETE WO CONTRAST Routine 04/01/2024 1:34 PM CDT Aortic valve insufficiency, etiology of cardiac valve disease unspecified CBC WITH AUTO DIFFERENTIAL Routine 03/05/2024 5:07 PM CDT Other iron deficiency anemia CBC WITH AUTO DIFFERENTIAL Routine 03/05/2024 5:07 PM CDT Other iron deficiency anemia BASIC METABOLIC PANEL Routine 03/05/2024 5:07 PM CDT Hyponatremia SCAN CORRESP-EKG RESULTS 03/04/2024 12:00 AM CDT SCAN CORRESP-LABORATORY RESULTS 03/04/2024 12:00 AM CDT CK TOTAL Add On 02/02/2024 1:39 PM CDT Chronic arthralgias of knees and hips BASIC METABOLIC PANEL Routine 02/02/2024 1:39 PM CDT Essential hypertension ANTI HCV Routine 02/05/2021 11:21 AM CDT Need for hepatitis C screening test from Last 3 Months or Most Recently Relevant to Health Maintenance Results * EXTENDED HOLTER (04/04/2024) Yang Eng MD CARDIAC SERVICES O RD * ECHO TTE COMPLETE WO CONTRAST (04/01/2024 1:34 PM CDT) AORTIC VALVE MEAN PG 5 mmHg EJECTION FRACTION 56 % PEAK TR VELOCITY 2.1 m/s LVEDD 4.6 cm EJECTION FRACTION 55 - 60% Anatomical Region Laterality Modality Ultrasound 04/01/2024 1:00 PM CDT Narrative 04/01/2024 1:51 PM CDT ECHOCARDIOGRAM BRODY HERNANDEZ ? Accession#: ?? [id number] : ?1945 78 years Study Date: ?? 04/01/2024 1:00:17 PM Gender: M ?BP: ? 128/59 mmHg Height: 183.00 cm ?BSA: ?2.09 m? ? ? Weight: 87.00 kg ? Tech: ? MBF ? Referring MD: JARROD HAWKINS Site: ? [facility] Reading Location: Mobile OP Patient Location: Outpatient. Procedure: 2D, Color Doppler and Spectral Doppler. Indication for study: Aortic valve insufficiency Cardiac Rhythm: Sinus bradycardia.Study quality: Fair. Final Impressions: 1. Normal LV size, normal wall thickness, normal global systolic function with an estimated EF of 55 - 60%. 2. Right ventricular cavity size is normal, global systolic RV function is normal. 3. The aortic valve is trileaflet, no stenosis and moderate regurgitation. ERO 0.2 cm2. 4. The mitral valve is sclerotic, trace mitral regurgitation. Chamber Sizes and Function Normal left ventricular size, normal wall thickness, normal global systolic function with an estimated EF of 55 - 60%. Left atrial size is normal. Right ventricular cavity size is normal, global systolic RV function is normal. The right atrium is normal. The pulmonary artery is of normal size and origin. The sinus of Valsalva is normal for age/sex/bsa. The ascending aorta is normal sized. Valves, RV Pressures and Diastolic Function The aortic valve is trileaflet, no stenosis and moderate regurgitation. The mitral valve is sclerotic, trace mitral regurgitation. Mitral annular calcification is present. Spectral Doppler shows Grade 1 pattern of LV diastolic filling. The tricuspid valve is normal in structure. Tricuspid regurgitation is trace regurgitation. The tricuspid regurgitant velocity is 2.1 m/s, the estimated right ventricular systolic pressure is 17 mmHg plus right atrial pressure. The pulmonic valve is not well visualized. Trace pulmonary regurgitation. Masses, Effusion, Shunts There is no pericardial effusion. The inferior vena cava is normal sized, respiratory size variation greater than 50%. No left to right shunting was detected by limited color flow Doppler interrogation of the interatrial septum. MEASUREMENTS AND CALCULATIONS 2-D Measurements and LV Function: LVID (d) 4.6 cm LV FS% (2D) ?? 36 % LVID (s) 2.9 cm LVOT diameter 2.1 cm IVS (d) ??1.0 cm HR ?57 bpm LVPW (d) 1.1 cm LA Vol index ??27 ml/m2 Ao Sinus 4.1 cm RV Max 4C (d) 4.5 cm Asc Ao ?? 3.6 cm Diastology: Mitral ?Tissue Doppler E Peak 0.6 m/s ??e', Septum ? 0.05 m/s A Peak 1.3 m/s ??e', Lateral ?0.07 m/s E/A ?0.5 ?E/e' Average ?? 10.29 DT ? 238 msec Aortic Valve: Vmax ? 1.6 m/s ??GABY (V) ?? 2.71 cm? AI P 1/2 733 msec VTI ?0.40 m ?? GABY (I) ?? 2.79 cm? ? ? LVOT V max 1.2 m/s ??Max PG ?10 mmHg LVOT VTI ?? 0.33 m ?? Mean PG ?? 5 mmHg SV ? 112 ml ?? Dim Index 0.83 SV index ?? 53 ml/m? ? ? CO ?6.4 l/min ?CI ?3.0 l/min/m? ? ? Mitral Valve: MVA ?3.2 cm? ? ? MV P 1/2 69 msec Tricuspid Valve and estimated PA pressures: TR Vmax 2.1 m/s TAPSE 2.7 cm TR maxG 17 mmHg . This study was interpreted by an [facility] accredited facility. ??Final ?? Procedure Note Reynaldo Joe MD - 04/01/2024 ECHOCARDIOGRAM BRODY HERNANDEZ : 1945 78 years Study Date: 04/01/2024 1:00:17 PM Gender: M BP: 128/59 mmHg Height: 183.00 cm BSA: 2.09 m? ? ? Weight: 87.00 kg Tech: [facility] Referring MD: JARROD SNYDER [place] Site: [facility] Reading Location: Mobile OP Patient Location: Outpatient. Procedure: 2D, Color Doppler and Spectral Doppler. Indication for study: Aortic valve insufficiency Cardiac Rhythm: Sinus bradycardia.Study quality: Fair. Final Impressions: 1. Normal LV size, normal wall thickness, normal global systolic functionwith an estimated EF of 55 - 60%. 2. Right ventricular cavity size is normal, global systolic RV functionis normal. 3. The aortic valve is trileaflet, no stenosis and moderateregurgitation. ERO 0.2 cm2. 4. The mitral valve is sclerotic, trace mitral regurgitation. Chamber Sizes and Function Normal left ventricular size, normal wall thickness, normal globalsystolic function with an estimated EF of 55 - 60%. Left atrial size isnormal. Right ventricular cavity size is normal, global systolic RVfunction is normal. The right atrium is normal. The pulmonary artery is ofnormal size and origin. The sinus of Valsalva is normal for age/sex/bsa.The ascending aorta is normal sized. Valves, RV Pressures and Diastolic Function The aortic valve is trileaflet, no stenosis and moderate regurgitation.The mitral valve is sclerotic, trace mitral regurgitation. Mitral annularcalcification is present. Spectral Doppler shows Grade 1 pattern of LVdiastolic filling. The tricuspid valve is normal in structure. Tricuspidregurgitation is trace regurgitation. The tricuspid regurgitant velocityis 2.1 m/s, the estimated right ventricular systolic pressure is 17 mmHgplus right atrial pressure. The pulmonic valve is not well visualized.Trace pulmonary regurgitation. Masses, Effusion, Shunts There is no pericardial effusion. The inferior vena cava is normal sized,respiratory size variation greater than 50%. No left to right shunting wasdetected by limited color flow Doppler interrogation of the interatrialseptum. MEASUREMENTS AND CALCULATIONS 2-D Measurements and LV Function: LVID (d) 4.6 cm LV FS% (2D) 36 % LVID (s) 2.9 cm LVOT diameter 2.1 cm IVS (d) 1.0 cm HR 57 bpm LVPW (d) 1.1 cm LA Vol index 27 ml/m2 Ao Sinus 4.1 cm RV Max 4C (d) 4.5 cm Asc Ao 3.6 cm Diastology: Mitral Tissue Doppler E Peak 0.6 m/s e', Septum 0.05 m/s A Peak 1.3 m/s e', Lateral 0.07 m/s E/A 0.5 E/e' Average 10.29 DT 238 msec Aortic Valve: Vmax 1.6 m/s GABY (V) 2.71 cm? ? ? AI P / 733 msec VTI 0.40 m GABY (I) 2.79 cm? ? ? LVOT V max 1.2 m/s Max PG 10 mmHg LVOT VTI 0.33 m Mean PG 5 mmHg SV 112 ml Dim Index 0.83 SV index 53 ml/m? ? ? CO 6.4 l/min CI 3.0 l/min/m? ? ? Mitral Valve: MVA 3.2 cm? ? ? MV P / 69 msec Tricuspid Valve and estimated PA pressures: TR Vmax 2.1 m/s TAPSE 2.7 cm TR maxG 17 mmHg . This study was interpreted by an [facility] accredited facility. Final Jarrod Hawkins MD ECHO ORD * (ABNORMAL) CBC WITH AUTO DIFFERENTIAL (03/05/2024 5:07 PM CDT) WHITE BLOOD COUNT 7.4 4.5 - 11.0 thou/cu mm 03/05/2024 5:11 PM CDT [facility] RED BLOOD COUNT 4.06(L) 4.30 - 5.90 mil/cu mm 03/05/2024 5:11 PM CDT [facility] HEMOGLOBIN 13.6 13.5 - 17.5 g/dL 03/05/2024 5:11 PM CDT [facility] HEMATOCRIT 39.7 37.0 - 53.0 % 03/05/2024 5:11 PM CDT [facility] MCV 98 80 - 100 fL 03/05/2024 5:11 PM CDT [facility] MCH 33.5 26.0 - 34.0 pg 03/05/2024 5:11 PM CDT [facility] MCHC 34.3 32.0 - 36.0 g/dL 03/05/2024 5:11 PM CDT [facility] RDW 12.8 11.5 - 15.5 % 03/05/2024 5:11 PM CDT [facility] PLATELET COUNT 185 140 - 440 thou/cu mm 03/05/2024 5:11 PM CDT [facility] MPV 10.5 6.5 - 11.0 fL 03/05/2024 5:11 PM CDT [facility] % NEUT 48.3 % 03/05/2024 5:11 PM CDT [facility] % LYMPH 37.6 % 03/05/2024 5:11 PM CDT [facility] % MONO 11.0 % 03/05/2024 5:11 PM CDT [facility] % EOS 2.7 % 03/05/2024 5:11 PM CDT [facility] % BASO 0.4 % 03/05/2024 5:11 PM CDT [facility] ABSOLUTE NEUTROPHILS 3.6 1.7 - 7.0 thou/cu mm 03/05/2024 5:11 PM CDT [facility] ABSOLUTE LYMPHOCYTES 2.8 0.9 - 2.9 thou/cu mm 03/05/2024 5:11 PM CDT [facility] ABSOLUTE MONOCYTES 0.8 <0.9 thou/cu mm 03/05/2024 5:11 PM CDT [facility] ABSOLUTE EOSINOPHILS 0.2 <0.5 thou/cu mm 03/05/2024 5:11 PM CDT [facility] ABSOLUTE BASOPHILS 0.0 <0.3 thou/cu mm 03/05/2024 5:11 PM CDT [facility] Blood BLOOD SPECIMEN / Unknown Venipuncture / Unknown 03/05/2024 5:07 PM CDT 03/05/2024 5:07 PM CDT Yang Eng MD HEMATOLOGY [facility] [address] [place] [address], * (ABNORMAL) BASIC METABOLIC PANEL (03/05/2024 5:07 PM CDT) Only the most recent of2 resultswithin the time period is included. SODIUM 137 136 - 145 mmol/L 03/06/2024 2:02 PM CDT [facility] POTASSIUM 4.5 3.5 - 5.1 mmol/L 03/06/2024 2:02 PM CDT [facility] CHLORIDE 101 98 - 107 mmol/L 03/06/2024 2:02 PM CDT [facility] CO2,TOTAL 25 22 - 29 mmol/L 03/06/2024 2:02 PM CDT [facility] ANION GAP 11 5 - 18 03/06/2024 2:02 PM CDT [facility] GLUCOSE 83 70 - 99 mg/dL 03/06/2024 2:02 PM CDT [facility] CALCIUM 9.8 8.8 - 10.2 mg/dL 03/06/2024 2:02 PM CDT [facility] BUN 20 8 - 23 mg/dL 03/06/2024 2:02 PM CDT [facility] CREATININE 1.39(H) 0.70 - 1.20 mg/dL 03/06/2024 2:02 PM CDT [facility] BUN/CREAT RATIO 14 10 - 20 2:02 PM CDT [facility] eGFR 52(L) >90 mL/min/1.7 3m2 03/06/2024 2:02 PM CDT [facility] Comment:As of 2022, eG FR is calculated by the CKD-EPI creatinine equation without race adjustment. ??eGFR can be influenced by muscle mass, exercise, and diet. ??The reported eGFR is an estimation only and is only applicable if the renal function is stable. Blood BLOOD SPECIMEN / Unknown Venipuncture / Unknown 03/05/2024 5:07 PM CDT 03/05/2024 5:07 PM CDT Yang Eng MD [facility] [address] [place] [address], * SCAN CORRESP-LABORATORY RESULTS (03/04/2024 12:00 AM CDT) Scanner OTHER * SCAN CORRESP-EKG RESULTS (03/04/2024 12:00 AM CDT) Scanner OTHER * CK TOTAL (02/02/2024 1:39 PM CDT) CK,TOTAL 201 39 - 308 IU/L 02/06/2024 3:08 PM CDT [facility] Blood BLOOD SPECIMEN / Unknown Venipuncture / Unknown 02/02/2024 1:39 PM CDT 02/02/2024 1:40 PM CDT Yang Eng MD CHEMISTRY [facility] [address] [place] [address], * ANTI HCV [16181.2] (02/05/2021 11:21 AM CDT) HEPATITIS C ANTIBODY Non-React zen Non-React zen 02/05/2021 10:44 PM CDT [facility] Comment:Antibodies to HCV no t detected; does not exclude the possibility of exposure to HCV. Blood BLOOD SPECIMEN / Unknown Venipuncture / Unknown 02/05/2021 11:21 AM CDT 02/05/2021 11:21 AM CDT Yang Eng MD SEND OUTS [facility] 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
--- OUTSIDE RECORDS SUMMARY | 2024-04-08 16:23 | XMS_ITS | Continuity of Care Document ---
Author Name Unknown Organization Z [facility] Address [address] [place] [address] Phone Care Team Providers Care Parish Visitor Name Role Phone Fletcher GARDNER, Anushka Unavailable Unavailable Procedures Procedure Date Office/outpatient visit,[facility] 2009 X-ray exam lwr spine, min 4 views Advance Directives Directive Yes / No Effective Date File Name No Information Encounters Encounter Description Practice Location Reason(s) For Visit Diagnoses Date Provider Providers Copied on Encounter Office[facility]pat [facility], [address] [place], [place] [address], [address], [place] tel:[phone] [facility] No Information Fletcher Reveles. [facility], [address] [place] [address] [address], [place], [place], [id number] , [place]. tel:[phone] Referring Provider: Jean Siegel, [address], [address]. tel:[phone] Family History Family Member Type Diagnosis Age At Onset No Information Payers Payer name Insurance type Covered republican ID Authoriza tion(s) Medicare MB [id number] [facility] [id number] Social History Type Description Quantity Date Captured Comments Sex Male Smoking Status No Information Vital Signs Date / Time: Height Weight BMI Pulse Rate Blood Pressure Temperature Respiratory Rate Body Surface Area Head Circumference Head Circ. Percentile Wt./Tramaine. Percentile BMI percentile Pulse Ox Inhaled Ox 3:54 PM 71.80 in 81.800 kg (180.00 lbs) 24.6 1 kg/m eter (2) Chief Complaint And Reason For Visit No Information Reason For Referral Reason For Referral No Information History Of Present Illness Encounter Date Complaint History Of Prese nt Illness No Information Functional Status Date Functional Assessmen t No Information Instructions Date Instruction Additional Infor mation No Information Assessments Type Assessment Date No Information Patient Care Teams Name Effective Dates (start - stop) Status Members No Information
== END 2024-03-02 19:42 | disposition home or self-care (01) ==
PROVIDERS: Emergency Provider Family Medicine; PCP Family Medicine
DX: I49.3 Ventricular premature depolarization (principal); E87.1 Hypo-osmolality and hyponatremia; E86.0 Dehydration
CPT/HCPCS: 36415; 80048; 85025; 93005; 94761; 99284; J7030

== ENCOUNTER 2024-07-31 22:32 | Outpatient (CLI) | payer MEDICARE, SELFPAY ==
--- OUTSIDE RECORDS SUMMARY | 2024-08-02 15:02 | XMS_ITS | Clinical Summary ---
Author Organization [employer] [facility] Address [place], [place] [address] Care Team Providers Care Elementary Teacher Name Role Phone MurrySridhar Damian Unavailable [phone] Concepcion Canseco MD Unavailable [phone] Camila Myers MD Unavailable + Yang Eng MD Primary Care Provider [phone] Allergies Active Allergy Reactions Criticality Noted Date [...] for 1 year. I talked to the [facility] team and they recommend not interrupting [...] Encounters Date Type Department Care Team Description 08/01/2024 Orders Only [facility] Scanner 1 scan: (1-Ord) MICHELINE SANCHES, 08/01/2024 07/30/2024 1:55 PM CDT Office Visit [facility] [address] [place] [address] [address] Yang Eng MD Follow Up (Recheck labs and blood pressure) 07/30/2024 Telephone [facility] [address] [phone] Alexis Bajwa MD Appointment 07/30/2024 Travel 07/29/2024 1:15 PM CDT Orders Only [facility] [address] [place] [address] Lab, [place] Lab 07/29/2024 Travel 07/17/2024 Telephone [facility] [address] [facility] [address] Yang Eng MD Lab 06/05/2024 2:00 PM CDT Office Visit [facility] [place] at [address] [phone] Daniel Pro MD Follow Up 06/05/2024 Travel from Last 3 Months Immunizations Name Administration Dates Next Due AMB INFLUENZA IIV3 (AGE 65+ YRS) PF (Flu Clinic Only) 09/10/2019 AMB Influenza, IIV3 (Age >=3 years)(Flu Clinic Only) 10/10/2012,09/14/2011,09/24/2010,2007 Amb Influenza, Inact (High-d ose) (Flu Clinic Only) 09/17/2016,09/12/2014 Amb Influenza, Inactivated A IIV4 (Age 65+ Years) Preserv Free 08/31/2020 COVID-19 vaccine (Roomtag NTech 30mcg/0.3mL) 12YO+ BIVALENT PF, MDV 07/07/2023,09/19/2022 COVID-19 vaccine (Thalchemy-Bio NTech 30mcg/0.3mL) 12YO+ MARCO-SUCROSE PF, MDV 04/08/2022 COVID-19 vaccine (Thalchemy-Bio NTech 30mcg/0.3mL) PF, MDV 09/22/2021,01/14/2021,12/24/2020 Influenza, High-dose [...] file Travel History Travel Start Travel End [place] 07/13/2024 07/23/2024 Obstetrics History Last Filed Vital Signs Vital Sign Reading Time Taken Comments Blood Pressure 118/66 07/30/2024 1:58 PM CDT Pulse 59 07/30/2024 1:58 PM CDT Temperature 36.7 ??C (98 ??F) 03/05/2024 4:03 PM CDT 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% 07/30/2024 1:58 PM CDT Inhaled Oxygen Concentration - - Weight 83 kg (183 lb) 07/30/2024 1:58 PM CDT Height 180.4 cm (5' 11.02) 04/12/2024 1:31 PM C DT Body Mass Index 25.51 04/12/2024 1:31 PM CDT Plan of Treatment Upcoming Encounters Date Type Department Care Team (Late st Contact Info) Description 08/07/2024 2:00 PM CDT Ancillary Procedure [facility] [address] [facility] [address] [place] [address] 08/21/2024 2:20 PM CDT Office Visit [facility] [place] [facility] [address] [place] [address] Alexis Bajwa MD [address] [place] [address] Health Maintenance Due Date Last Done Comments [...] Procedure Name Priority Date/Time Associated Diagnosis Comments SCAN-CT INTERPRETATION 12:00 AM CDT LIPID PANEL W REFLEX MEASURED LDL Routine 07/29/2024 1:09 PM CDT Other hyperlipidemia BASIC METABOLIC PANEL Routine 07/29/2024 1:09 PM CDT Essential hypertension ANTI HCV Routine 02/05/2021 11:21 AM CDT Need for hepatitis C screening test from Last 3 Months or Most Recently Relevant to Health Maintenance Results * SCAN-CT INTERPRETATION (08/01/2024 12:00 AM CDT) Anatomical Region Laterality Modality Other Scanner OTHER * LIPID PANEL W REFLEX MEASURED LDL (07/29/2024 1:09 PM CDT) CHOLESTEROL,TOTAL 111 100 - 199 mg/dL 07/30/2024 4:54 AM CDT [facility] Comment: Cholesterol, Total Reference Ranges Desirable <200 mg/dL Borderline 200-239 mg/dL High >=240 mg/dL TRIGLYCERIDES 76 <150 mg/dL 07/30/2024 4:54 AM CDT [facility] HDL CHOLESTEROL 50 >40 mg/dL 4:54 AM CDT [facility] NON-HDL CHOLESTEROL 61 <145 mg/dl 07/30/2024 4:54 AM CDT [facility] [employer] [facility] CHOL/HDL RATIO 2.22 <4.50 07/30/2024 4:54 AM CDT [facility] [employer] [facility] LDL CHOLESTEROL 46 <=130 mg/dL 07/30/2024 4:54 AM CDT [facility] VLDL CHOLESTEROL 15 <=30 mg/dL 07/30/2024 4:54 AM CDT [facility] [facility] PROVIDER ORDERED STATUS RANDOM 07/30/2024 4:54 AM CDT [facility] [place] [facility] Blood BLOOD SPECIMEN / Unknown Venipuncture / Unknown 07/29/2024 1:09 PM CDT 07/29/2024 1:10 PM CDT Yang Eng MD CHEMISTRY [facility] [address] [place], [place] [address] * (ABNORMAL) BASIC METABOLIC PANEL (07/29/2024 1:09 PM CDT) [facility] Signature SODIUM 133(L) 136 - 145 mmol/L 07/30/2024 4:54 AM T [facility] POTASSIUM 4.5 3.5 - 5.1 mmol/L 07/30/2024 4:54 AM T [facility] CHLORIDE 101 98 - 107 mmol/L 07/30/2024 4:54 AM T [facility] CO2,TOTAL 23 22 - 29 mmol/L 07/30/2024 4:54 AM T [facility] ANION GAP 9 5 - 18 07/30/2024 4:54 AM [facility] GLUCOSE 88 70 - 99 mg/dL 07/30/2024 4:54 AM [facility] CALCIUM 8.7(L) 8.8 - 10.2 mg/dL 07/30/2024 4:54 AM [facility] BUN 17 8 - 23 mg/dL 07/30/2024 4:54 AM [facility] CREATININE 1.40(H) 0.70 - 1.20 mg/dL 07/30/2024 4:54 AM [facility] BUN/CREAT RATIO 12 10 - 20 4:54 AM [facility] eGFR 51(L) >90 mL/min/1.7 3m2 07/30/2024 4:54 AM [facility] Comment:As of 2022, eG FR [...] 1:10 PM CDT Yang Eng MD [facility] [address] [place] [address], * ANTI HCV [14306.2] (02/05/2021 11:21 AM CDT) HEPATITIS C ANTIBODY Non-React zen Non-React zen 02/05/2021 10:44 PM CDT [facility] Comment:Antibodies to HCV no t detected; does not exclude the possibility of exposure to HCV. Blood BLOOD SPECIMEN / Unknown Venipuncture / Unknown 02/05/2021 11:21 AM CDT 02/05/2021 11:21 AM CDT Yang Eng MD SEND OUTS [facility] 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
--- OUTSIDE RECORDS SUMMARY | 2024-08-02 15:02 | XMS_ITS | Continuity of Care Document ---
Author Organization Z [facility] [place] Address [address] [place] [address] [address] [place] [address] Phone Care Team Providers Care Audit Clerk Name Role Phone Anushka Bynum MD Unavailable Unavailable Procedures Procedure Date Office/outpatient visit,[facility] 2009 X-ray exam lwr spine, min 4 views Advance Directives Directive Yes / No Effective Date File Name No Information Encounters Encounter Description Practice Location Reason(s) For Visit Diagnoses Date Provider Providers Copied on Encounter Office/outpat ient visit,[facility], [facility] [place], [address] [place] [address] [address], [place], [address], [place] tel:[phone] [facility] No Information Fletcher Reveles. [facility], [address] [place] [address], [place], [place], [id number] , [place]. tel:[phone] Referring Provider: Jean Siegel, [address], [address]. tel:[phone] Family History Family Member Type Diagnosis Age At Onset No Information Payers Payer name Insurance type Covered constitution party ID Authoriza tion(s) Medicare MB [id number] [facility] [address] [id number] Social History Type Description Quantity Date Captured [...]
== END 2024-07-31 22:33 | disposition home or self-care (01) ==
LOC: AMB 08-02 14:58
PROVIDERS: PCP Family Medicine; Visit Provider Student in an Organized Health Care Education/Training Program
DX: R56.9 Unspecified convulsions (principal); R53.1 Weakness
CPT/HCPCS: A0425; A0427

== ENCOUNTER 2024-07-31 23:07 | Emergency (ER) | payer MEDICARE, SELFPAY ==
[2024-07-31] VITALS (7 sets, daily range): BP systolic 135–154; BP diastolic 70–74; PULSE 58–65; RESP 16; TEMP 36.1; O2SAT 92–96; BMI 24.8
[2024-07-31 23:28] LABS: Basophils Absolute Auto 0.03 K/uL (0.00-0.30); Basophils Percent Auto 0.4 % (0.0-3.0); Eosinophils Absolute Auto 0.23 K/uL (0.00-0.50); Eosinophils Percent Auto 3.3 % (0.0-7.0); Hematocrit 36.5 % (37.0-53.0); Hemoglobin* 12.2 gm/dL (13.5-17.5); Immature Granulocytes Abs Auto 0.02 K/uL (0.00-0.30); Immature Granulocytes Pct Auto 0.3 %; Lymphocytes Percent Auto 51.2 % (20-44); Mean Corpuscular HGB Conc 33 gm/dL (32-36); Mean Corpuscular Hemoglobin 33 pg (26-34); Mean Corpuscular Volume 98 fL (80-100); Monocytes Percent Auto 10.1 % (0.0-11.0); Neutrophils Percent Auto 34.7 % (42.0-72.0); Platelet Count* 150 K/uL (140-440); RDW Coefficient of Variation % 12.5 % (11.5-15.5); Red Blood Count 3.71 m/uL (4.30-5.90); White Blood Count* 7.05 K/uL (4.50-11.00)
[2024-07-31 23:37] LABS: Troponin, Point-of-Care* 0.01 ng/ml (0.01-0.04)
--- NOTE | 2024-07-31 23:40 | ED.GENADULT ---
HPI - General Adult General Chief complaint: Syncope/Fainted Stated complaint: weakness Time Seen by Provider: 07/31/24 23:22 Source: patient and EMS Mode of arrival: EMS Limitations: no limitations History of Present Illness HPI narrative: Patient is a 78-year-old male history of hypertension, coronary artery disease presenting to the emergency department for weakness. He states the weakness started suddenly when he woke up shortly prior to arrival. States he fell asleep on the couch and when he woke up he was feeling very weak. His was next to him when he woke up in states he had some jerking motion that seems similar to when he had a tonic clonic seizure and only 3 weeks ago. States that quickly resolved the own while he was initially slightly disoriented he quickly improved. He states since then has been feeling extremely weak. They state his previous seizure was thought to be due to his low sodium and dehydration. He was rehydrated and was discharged from the emergency department and [place] at that time. He did see his primary care provider yesterday and everything was normal at that time. He had 1 episode of emesis and EMS states vital signs were stable for them. States he feels like he does wants to lay down and fall asleep. Denies chest pain, shortness of breath, abdominal pain, vision changes, dizziness, numbness, diarrhea, constipation, abdominal pain. Related Data Home Medications ?Medication ?Instructions ?Recorded ?Confirmed clopidogrel 75 mg tablet 75 mg PO DAILY 06/21/22 07/31/24 metoprolol succinate 25 mg 25 mg PO DAILY 06/21/22 07/31/24 tablet,extended release 24 hr nitroglycerin 0.4 mg sublingual 0.4 mg sublingual Q5M PRN 06/21/22 07/31/24 tablet pantoprazole 20 mg tablet,delayed 20 mg PO .before meals 06/21/22 07/31/24 release sildenafil 100 mg tablet 100 mg PO Q24H PRN 06/21/22 07/31/24 lisinopril 5 mg tablet 5 mg PO DAILY 11/02/22 07/31/24 atorvastatin 10 mg tablet PO 07/31/24 Previous Rx's ?Medication ?Instructions ?Recorded polyethylene glycol 3350 17 gram 17 g PO DAILY #100 ea 11/03/22 oral powder packet (Miralax) psyllium husk (with sugar) 3.4 1 tbsp PO DAILY #30 ea 11/03/22 gram oral powder packet (Metamucil (with sugar)) tamsulosin 0.4 mg capsule 0.4 mg PO HS #30 caps 11/03/22 sennosides 8.6 mg capsule (senna) 8.6 mg PO DAILY PRN constipation 12/06/22 #90 caps tramadol 50 mg tablet 50 mg PO Q6H PRN pain #20 tabs 12/06/22 levetiracetam 1,000 mg tablet 1,000 mg PO BID #60 tabs 08/01/24 (Keppra) Allergies Allergy/AdvReac Type Severity Reaction Status Date / Time amoxicillin Allergy Verified 07/31/24 23:15 oxycodone Allergy Hallucinati Verified 07/31/24 23:15 ng Penicillins Allergy Verified 07/31/24 23:15 Review of Systems Status of ROS: Reports: 10 or more systems reviewed and unremarkable except as noted in History and below [facility] Medical History Health care directive on file ?Z78.9 - Other specified health status (ICD-10) GERD (gastroesophageal reflux disease) ?K21.9 - Gastro-esophageal reflux disease without esophagitis (ICD-10) Hypertension ?I10 - Essential (primary) hypertension (ICD-10) NSTEMI (non-ST elevated myocardial infarction) ?I21.4 - Non-ST elevation (NSTEMI) myocardial infarction (ICD-10) Spondylolysis of lumbar region ?M43.06 - Spondylolysis, lumbar region (ICD-10) Sensorineural hearing loss (SNHL) of both ears ?H90.3 - Sensorineural hearing loss, bilateral (ICD-10) CAD (coronary artery disease) ?I25.10 - Atherosclerotic heart disease of [place] coronary artery without angina pectoris (ICD-10) Surgical History S/P appendectomy ?Z90.49 - Acquired absence of other specified parts of digestive tract (ICD-10) S/P lateral meniscectomy of left knee ?Z98.890 - Other specified postprocedural states (ICD-10) S/P right inguinal hernia repair ?Z98.890 - Other specified postprocedural states (ICD-10) ?Z87.19 - Personal history of other diseases of the digestive system (ICD-10) S/P cataract extraction ?Z98.49 - Cataract extraction status, unspecified eye (ICD-10) S/P cholecystectomy ?Z90.49 - Acquired absence of other specified parts of digestive tract (ICD-10) Social History Narrative: Nonsmoker, alcohol 3 times a week. 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 Code status is full. Highest level of school completed/degree received: some college, no degree Smoking Status: Former smoker What tobacco products do you use: cigarettes Smoking quit date/years: >15 years ago Do you use any of these nicotine containing products: None How often do you have a drink containing alcohol: 2-3 times a week Alcohol type: wine and hard liquor How many standard drinks containing alcohol do you have on a typical day: 1 or 2 How often do you have six or more drinks on one occasion: Never AUDIT-C Alcohol total score: 3 Non-prescribed substance use: denies use Caffeine: Yes (1 cup coffee daily) service: No Exam Narrative: Exam Narrative: Const: Well-nourished, Well-developed, in mild distress Eyes: PERRL, no conjunctival injection, and symmetrical lids HENT: Atraumatic external nose and ears. Moist mucous membranes. Neck: Symmetric, trachea midline, No thyromegaly. CVS: RRR, No murmurs or gallops. Peripheral pulses 2+ and equal in all extremities RESP: Unlabored respiratory effort. Clear to auscultation bilaterally. GI: Nontender/Nondistended, No rebound or guarding. MSK:Extremities w/o deformity, Normal Active ROM Skin: Warm, Dry. No rashes or lesions. Neuro: Normal Muscle tone, No focal neurological deficits. Psych: Awake, Alert, & Oriented x3. Appropriate mood and affect. Const: Vital Signs, click to edit/add: Vital Signs - 24 hr 07/31/24 23:10 Temperature 96.9 F L Pulse Rate [Pulse Oximeter] 63 Respiratory Rate 16 Blood Pressure [Le ft Upper Arm] 154/74 H Pulse Oximetry 94 Oxygen Delivery Me thod Room Air Course Vital Signs Vital signs: Initial Vital Signs Temperature 96.9 F L 07/31/24 23:10 Temperature Source Temporal Artery Scan 07/31/24 23:10 Pulse Rate 63 07/31/24 23:10 Pulse Rhythm Regular 07/31/24 23:10 Pulse Strength 3+ Normal 07/31/24 23:10 Respiratory Rate 16 07/31/24 23:10 Blood Pressure 154/74 H 07/31/24 23:10 Blood Pressure Mean 100 07/31/24 23:10 Blood Pressure Position Semi-Fowlers 07/31/24 23:10 Pulse Oximetry 94 07/31/24 23:10 Oxygen Delivery Method Room Air 07/31/24 23:10 Vital Signs Temperature 96.9 F L 07/31/24 23:10 Pulse Rate 63 07/31/24 23:10 Respiratory Rate 16 07/31/24 23:10 Blood Pressure 154/74 H 07/31/24 23:10 Pulse Oximetry 94 07/31/24 23:10 Oxygen Delivery Method Room Air 07/31/24 23:10 Temperature 96.9 F L 07/31/24 23:10 Pulse Rate 63 07/31/24 23:10 Respiratory Rate 16 07/31/24 23:10 Blood Pressure 154/74 H 07/31/24 23:10 Pulse Oximetry 94 07/31/24 23:10 Oxygen Delivery Method Room Air 07/31/24 23:10 Medications Administered Medications: Generic Name Dose Route Start Last Admin Trade Name Freq PRN Reason Stop Dose Admin Levetiracetam 1,000 mg/ Sodium 110 mls @ 440 mls/hr 08/01/24 00:35 08/01/24 00:50 Chloride IVPB 08/01/24 00:36 440 mls/hr ONCE ONE Administration Discontinued Medications Generic Name Dose Route Start Last Admin Trade Name Freq PRN Reason Stop Dose Admin Lactated Ringer's 1,000 mls @ 1,000 mls/hr 07/31/24 23:39 08/01/24 00:32 Lactated Ringers 1000 Ml IV 08/01/24 00:38 Infused .Q1H ONE Infusion Ondansetron HCl 4 mg 07/31/24 23:41 07/31/24 23:49 Ondansetron 2 Mg/Ml Inj IVP 07/31/24 23:42 4 mg ONCE ONE Administration Medical Decision Making MDM Narrative Medical decision making narrative: Patient is a 78-year-old male presenting to emergency department for weakness. Unsure was causing his weakness at this time but I will check a troponin an EKG to look for signs of ACS causing this. Will also do a BMP to look at his electrolytes and CBC to look for signs of a other infections. COVID and flu ordered. While still urinalysis and try rehydrate him as some of this could be formed dehydration. His did say he was working a lot outside today. When I asked the again she states she does not think this was a seizure. I do not believe head imaging is necessary at this time Patient's lab work is all returning showing no concerning abnormalities. His sodium was only slightly low at 133 potassium 3.5 this is unlikely to be causing his symptoms. EKG and troponin shows no concerning findings. COVID/flu shows no concerning findings. While we wait for lab work to came back the patient became tremulous and unsure why. TSH, head CT, lactate all ordered. This continued until he started developing or a we states he felt like he was having squiggly lines in his vision. This lasted about 10-15 minutes and then resolved and now he states he is starting to feel better. He does states he has had auras in the past looks similar to this but states they usually horizontal lines in a V but not likely is that were more random. He states his has a history of migraines and he always thought they were migraines also. I am not sure if this was a partial seizure what exactly is going on but did preemptively load him with Keppra. [facility] [place] was consulted. CT scan returned showing no concerning abnormalities I did speak to the on-call neurologist Dr. Goodman and explained the situation. He states it is difficult to say if he did have another seizure or not but considering he does have that seizure from a few weeks ago does recommend starting him on Keppra 1000 mg b.i.d.. Patient does states he has a follow-up appointment with Neurology at the end of this month and will look to see if they can get it moved up. Considering he will be on Keppra I do think it is safe for him to wait to the end of the month for the appointment. I offered the patient observation hospital stay but he prefers to go home at this time he is feeling better. Lab Data Labs: Lab Results 07/31/24 07/31/24 07/31/24 Range/Units 23:19 23:20 23:25 WBC 7.05 (4.50-11.00) K/uL RBC 3.71 L (4.30-5.90) m/uL Hgb 12.2 L (13.5-17.5) gm/dL Hct 36.5 L (37.0-53.0) % MCV 98 (80-100) fL MCH 33 (26-34) pg MCHC 33 (32-36) gm/dL RDW Coeff of Joel 12.5 (11.5-15.5) % Plt Count 150 (140-440) K/uL Neut % (Auto) 34.7 L (42.0-72.0) % Lymph % (Auto) 51.2 H (20-44) % [place] % (Auto) 10.1 (0.0-11.0) % Eos % (Auto) 3.3 (0.0-7.0) % Baso % (Auto) 0.4 (0.0-3.0) % Neut # (Auto) 2.40 (1.7-7.0) K/uL Lymph # (Auto) 3.60 H (0.90-2.90) K/uL [place] # (Auto) 0.70 (0.00-0.90) K/UL Eos # (Auto) 0.23 (0.00-0.50) K/uL Baso # (Auto) 0.03 (0.00-0.30) K/uL Abs Immat Gran (auto) 0.02 (0.00-0.30) K/uL Imm/Tot Granulo (auto) 0.3 % Sodium 133 L (135-149) mmol/L Potassium 3.5 L (3.6-5.1) mmol/L Chloride 103 (96-114) mmol/L Carbon Dioxide 21 (20-32) mmol/L Anion Gap 9 (7-15) mEq/L BUN 21 (7-30) mg/dL Creatinine 1.5 (0.5-1.5) mg/dL Estimated Creat Clear 43.83 Estimated GFR 47 ml/min Glucose 122 H (60-115) mg/dL Lactate (0.5-1.9) mmol/L Calcium 9.2 (8.4-10.6) mg/dL Troponin I < 0.01 L (0.01-0.04) ng/mL SARS-CoV-2 (PCR) Negative SARS-CoV-2 (Negative) Influenza Type A (PCR) Negative PCR FLU A (Negative) Influenza Type B (PCR) Negative PCR FLU B (Negative) Lab Acknowledgement POC Troponin I 0.01 (0.01-0.04) ng/ml 08/01/24 08/01/24 Range/Units 00:14 00:39 WBC (4.50-11.00) K/uL RBC (4.30-5.90) m/uL Hgb (13.5-17.5) gm/dL Hct (37.0-53.0) % MCV (80-100) fL MCH (26-34) pg MCHC (32-36) gm/dL RDW Coeff of Joel (11.5-15.5) % Plt Count (140-440) K/uL Neut % (Auto) (42.0-72.0) % Lymph % (Auto) (20-44) % [place] % (Auto) (0.0-11.0) % Eos % (Auto) (0.0-7.0) % Baso % (Auto) (0.0-3.0) % Neut # (Auto) (1.7-7.0) K/uL Lymph # (Auto) (0.90-2.90) K/uL [place] # (Auto) (0.00-0.90) K/UL Eos # (Auto) (0.00-0.50) K/uL Baso # (Auto) (0.00-0.30) K/uL Abs Immat Gran (auto) (0.00-0.30) K/uL Imm/Tot Granulo (auto) % Sodium (135-149) mmol/L Potassium (3.6-5.1) mmol/L Chloride (96-114) mmol/L Carbon Dioxide (20-32) mmol/L Anion Gap (7-15) mEq/L BUN (7-30) mg/dL Creatinine (0.5-1.5) mg/dL Estimated Creat Clear Estimated GFR ml/min Glucose (60-115) mg/dL Lactate 1.0 (0.5-1.9) mmol/L Calcium (8.4-10.6) mg/dL Troponin I (0.01-0.04) ng/mL SARS-CoV-2 (PCR) (Negative) Influenza Type A (PCR) (Negative) Influenza Type B (PCR) (Negative) Lab Acknowledgement Test Added POC Troponin I (0.01-0.04) ng/ml Imaging Data CT scan - head: Attestation: I have reviewed the pertinent imaging results. Radiologist's impression: 1. No acute intracranial abnormality identified. 2. Mild age-related brain atrophy and white matter hypodensity consistent with chronic small vessel ischemic change. ROBERT CHEN MD [email or web address] Please note that all CT scans at this facility use dose modulation, iterative reconstruction, and/or weight-based dosing when appropriate to reduce radiation dose to as low as reasonably achievable. Dictated by: Daniel Chen MD @ 08/01/2024 00:45:29 Discharge Plan Discharge Clinical Impression: Seizure Patient Disposition: Home, Self-Care Condition: Improved Instructions: New-Onset Seizure in Adults (ED) Additional Instructions: I will started on Keppra per neurology recommendations. You can try move up your appointment with neurology as scheduled for the end of the month but if urine able to you should be fine considering your on the Keppra. Return to emergency department for new or worsening symptoms. Prescriptions: New levetiracetam [Keppra] 1,000 mg tablet 1,000 mg PO BID Qty: 60 0RF No Action lisinopril 5 mg tablet 5 mg PO DAILY Patient Comments: new medication has not started yet Metamucil (with sugar) 3.4 gram Powder In Packet 1 tbsp PO DAILY Qty: 30 0RF polyethylene glycol 3350 [Miralax] 17 gram Powder In Packet 17 g PO DAILY Qty: 100 0RF tamsulosin 0.4 mg Capsule 0.4 mg PO HS Qty: 30 0RF tramadol 50 mg tablet 50 mg PO Q6H PRN (Reason: pain) Qty: 20 0RF senna 8.6 mg capsule 8.6 mg PO DAILY PRN (Reason: constipation) Qty: 90 0RF clopidogrel 75 mg tablet 75 mg PO DAILY sildenafil 100 mg tablet 100 mg PO Q24H PRN Patient Comments: TAKE 1 TABLET BY MOUTH EVERY DAY. TAKE 30MIN TO 4 HOURS BEFORE SEXUAL ACTIVITY pantoprazole 20 mg tablet,delayed release (DR/EC) 20 mg PO .before meals nitroglycerin 0.4 mg tablet, sublingual 0.4 mg sublingual Q5M PRN metoprolol succinate 25 mg tablet extended release 24 hr 25 mg PO DAILY atorvastatin 10 mg tablet PO Follow Up/Referrals: Yang Eng MD [Primary Care Provider] - Stand Alone Forms: [employer] Info Instructions
[2024-07-31 23:45] LABS: Chloride* 103 mmol/L (96-114); Potassium* 3.5 mmol/L (3.6-5.1); Sodium* 133 mmol/L (135-149)
[2024-07-31 23:47] LABS: Slide Review Reflex No
[2024-07-31 23:48] LABS: Anion Gap 9 mEq/L (7-15); Blood Urea Nitrogen* 21 mg/dL (7-30); Carbon Dioxide* 21 mmol/L (20-32); Creatinine* 1.5 mg/dL (0.5-1.5); Est. Creatinine Clearance* 43.83; Estimated Glomerular Filt Rate 47 ml/min
[2024-07-31] MEDS: LACTATED RINGERS 1000 ML 1,000 ML IV (23:48)
[2024-07-31 23:49] LABS: Calcium* 9.2 mg/dL (8.4-10.6); Glucose* 122 mg/dL (60-115)
[2024-07-31] MEDS: ONDANSETRON 2 MG/ML inj 4 MG IVP (23:49)
[2024-08-01] VITALS (7 sets, daily range): BP systolic 132–143; BP diastolic 70–75; PULSE 62–72; O2SAT 92–96
--- OUTSIDE RECORDS SUMMARY | 2024-08-01 | XMS_ITS | Continuity of Care Document ---
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 Name Role Phone Anushka Bynum MD Unavailable Unavailable Procedures Procedure Date Office/outpatient visit,[facility] 2009 X-ray exam lwr spine, min 4 views Advance Directives Directive Yes / No Effective Date File Name No Information Encounters Encounter Description Practice Location Reason(s) For Visit Diagnoses Date Provider Providers Copied on Encounter Office/outpat ient visit,[facility], [facility], [address] [place], [place] [address] [address], [place], [address], [place] tel:[phone] [facility] No Information Fletcher Reveles. [facility], [address] [place] [address], [place], [place], [id number] , [place]. tel:[phone] Referring Provider: Jean Siegel, [address], [address]. tel:[phone] Family History Family Member Type Diagnosis Age At Onset No Information Payers Payer name Insurance type Covered democrat ID Authoriza tion(s) Medicare MB [id number] [facility] [id number] Social History Type Description Quantity Date Captured [...]
--- OUTSIDE RECORDS SUMMARY | 2024-08-01 | XMS_ITS | Clinical Summary ---
Author Organization [employer] [facility] Address [place], [place] [address] Care Team Providers Care Account Development Specialist Name Role Phone MurrySridhar Damian Unavailable [phone] Concepcion Canseco MD Unavailable [phone] Camila Myers MD Unavailable + Yang Eng MD Primary Care Provider [phone] Allergies Active Allergy Reactions Criticality Noted Date Comments Amoxicillin Rash 10/01/2007 Oxycodone Hallucinations 12/11/2008 Penicillins Rash 07/26/2007 Medications Medication Sig Dispensed Refills Start Date End Date Status fexofenadine (MILAGRO) 60 mg tablet Take 60 mg by mouth 2 times daily if needed. 0 03/12/2019 Active sennosides (SENNA) 8.6 mg tabletIndications:Co nstipation, acute Take 8.6 mg by mouth once daily if needed for Constipation (at nighttime). 0 01/22/2020 Active aspirin chewable 81 mg chewable tablet 02/12/2022 Active psyllium husk (MetamuciL) 3.4 gram/5.4 gram powd Mix in liquid then take by mouth once daily. 11/03/2022 Active polyethylene glycoL (Miralax) 17 gram/scoop powder Mix 17 g in liquid then take by mouth once daily. 11/03/2022 Active durable medical equipment (DME)Indications:Linus huang of foot Custom off loading inserts for callus left foot sub 2nd metatarsal head 1 Each 07/11/2023 Active atorvastatin (LIPITOR) 10 mg tabletIndications:NS TRENT (non-ST elevation myocardial infarction) (HC),Other hyperlipidemia Take on Monday, and Monday evening. 45 Tablet 3 04/12/2024 Active pantoprazole (PROTONIX) 20 mg tabletIndications:Ch ronic GERD Take 1 Tablet (20 mg) by mouth once daily before a meal. 100 Tablet 3 04/12/2024 Active lisinopriL (PRINIVIL; ZESTRIL) 5 mg tabletIndications:Es sential hypertension Take 1 Tablet (5 mg) by mouth once daily in the morning. 100 Tablet 3 04/12/2024 Active metoprolol succinate (TOPROL XL) 25 mg Sustained-Release tabletIndications:NS TRENT (non-ST elevation myocardial infarction) (HC) Take 1 Tablet (25 mg) by mouth once daily. 100 Tablet 3 04/12/2024 Active tamsulosin (FLOMAX) 0.4 mg capsuleIndications:B PH with urinary obstruction Take 2 Capsules (0.8 mg) by mouth at bedtime. 200 Capsule 3 04/12/2024 Active coenzyme q10 100 mg cap Take 1 Capsule (100 mg) by mouth once daily. 07/30/2024 Active Active Problems Problem Noted Date Diagnosed Date Stage 3 chronic kidney disease 07/30/2024 Other hyperlipidemia 02/21/2022 NSTEMI (non-ST elevation myocardial infarction) 02/21/2022 Overview (03/21/2022): This occurred on 02/11/2022. No culprit lesion found on Angiogram. No stents were placed. He was told to stay on the Plavix for 1 year. I talked to the [facility] team and they recommend not interrupting aspirin and plavix for one full year. Unless surgery would operate on while you are on those two drugs (very unlikely) you will have to wait until 1 year after you started the aspirin and plavix to have surgery. Chronic GERD 02/21/2022 Essential hypertension 02/21/2022 Tinnitus, bilateral 01/13/2015 Routine adult health maintenance 10/29/2014 Overview (10/29/2014): Colonoscopy 10/2014 diverticulosis no follow up needed Spondylolysis of lumbar region 01/29/2010 L5-S1 Disk Protrusion 01/29/2010 Sensorineural hearing loss, bilateral 01/12/2009 Encounters Date Type Department Care Team Description 07/30/2024 1:55 PM CDT Office Visit [facility] [address] [place] [address] Yang Eng MD Follow Up (Recheck labs and blood pressure) 07/30/2024 Telephone [facility] [address] [phone] Alexis Bajwa MD Appointment 07/30/2024 Travel 07/29/2024 1:15 PM CDT Orders Only [facility] [address] [facility] [address] [place] 07/29/2024 Travel 07/17/2024 Telephone [facility] [address] [facility] [address] Yang Eng MD Lab 06/05/2024 2:00 PM CDT Office Visit [facility] [address] [place] [address] Daniel Pro MD Follow Up 06/05/2024 Travel from Last 3 Months Immunizations Name Administration Dates Next Due AMB INFLUENZA IIV3 (AGE 65+ YRS) PF (Flu Clinic Only) 09/10/2019 AMB Influenza, IIV3 (Age >=3 years)(Flu Clinic Only) 10/10/2012,09/14/2011,09/24/2010,2007 Amb Influenza, Inact (High-d ose) (Flu Clinic Only) 09/17/2016,09/12/2014 Amb Influenza, Inactivated A IIV4 (Age 65+ Years) Preserv Free 08/31/2020 COVID-19 vaccine (Pfizer-Bio NTech 30mcg/0.3mL) 12YO+ BIVALENT PF, MDV 07/07/2023,09/19/2022 [...] Inactivated IIV3 (Age 65+ Years) Preserv Free 07/30/2024,09/05/2018,11/02/2017 Pneumococcal Poly,23-Valent (Pneumovax) 12/14/2009 Pneumococcal conj 13-Valent (Prevnar 13) 12/26/2014 Td (Age >=7 Years) 08/03/2000 Td, Preservative Free (age > = 7 Years) 12/14/2009 Tdap 03/06/2023 Tuberculin (PPD) 03/28/2013 Zoster (Shingrix-RZV, recombinant) 07/10/2019,,04/08/2019 [...] 2 Nancy of [place]ementi a at 85 Lung cancer Sister 3 Damari of this at age 58 Relation Name Status Comments Brother 1 Jose G (Age 65) Brother 2 Kamran Alive Father (Age 91) Mother (Age 44) car accide nt Sister 1 Ashlee (Age 78) Sister 2 Nancy (Age 85) Sister 3 Damari Social History Tobacco Use Types Packs/Day Years Used Date Smoking Tobacco: Never Passive Smoke Exposure: Never Smokeless Tobacco: Never Tobacco Cessation:Counseling Given: Yes Alcohol Use Standard Drinks/Week Comments Yes 1 (1 standard drink = 0.6 oz pur e alcohol) wine / 1 glass a week PHQ-2 Answer Date Recorded PHQ-2 TOTAL SCORE 0 04/12/2024 Social Connections Answer Date Recorded Frequency of Communication with Friends and Fami ly 0 07/30/2024 Alcohol Use Answer Date Recorded How often do you have a drink containing alcohol ? 2 04/12/2024 How many drinks containing a lcohol do you have on a typical day when you are drinking? 0 04/12/2024 How often do you have five or more drinks on one occasion? 0 04/12/2024 Financial Resource Strain Answer Date R ecorded Difficulty of Paying Living Expenses 3 07/30/2024 Difficulty of Paying Living Expenses Not on file 07/30/2024 Food Insecurity Answer Date Recorded Worried About Running Out of Food in the Last Ye ar 1 07/30/2024 Transportation Needs Answer Date Record ed Lack of Transportation (Medical) 1 07/30/2024 Housing Stability Answer Date Recorded Unable to Pay for Housing in the Last Year 1 07/30/2024 Sex and Gender Information Value Date Recorded Sex Assigned at Not on file Gender Identity Not on file Sexual Orientation Not on file Travel History Travel Start Travel End [place] 07/13/2024 07/23/2024 Obstetrics History Last Filed Vital Signs Vital Sign Reading Time Taken Comments Blood Pressure 118/66 07/30/2024 1:58 PM CDT Pulse 59 07/30/2024 1:58 PM CDT Temperature 36.7 ??C (98 ??F) 03/05/2024 4:03 PM CDT Respiratory Rate 19 11/04/2022 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 Oxygen Saturation 96% 07/30/2024 1:58 PM CDT Inhaled Oxygen Concentration - - Weight 83 kg (183 lb) 07/30/2024 1:58 PM CDT Height 180.4 cm (5' 11.02) 04/12/2024 1:31 PM C DT Body Mass Index 25.51 04/12/2024 1:31 PM CDT Plan of Treatment Upcoming Encounters Date Type Department Care Team (Late st Contact Info) Description 08/19/2024 2:45 PM CDT Ancillary Procedure [facility] [address] [place] [address] 08/21/2024 2:20 PM CDT Office Visit [facility] [place] [facility] [address] [place] [address] Alexis Bajwa MD [address] [place] [address] Health Maintenance Due Date Last Done Comments RSV vaccine for adults or (1 - 1-dose 60+ series) 2004 COVID-19 vaccine series (2022- season) 2024 07/07/2023, 09/19/2022, 04/08/2022, Additional history exists BMI (ht and wt on same day) for age 18+ 04/12/2025 04/12/2024, 02/06/2024, 02/27/2023, Additional history exists Depression screening for age 12+ 04/12/2025 04/12/2024, 02/27/2023, 06/01/2022, Additional history exists Medicare Wellness for age 65+ 04/13/2025, 02/27/2023, 02/07/2022, Additional history exists Tetanus booster 03/06/2033 03/06/2023, 11/21, 08/03/2000 Pneumococcal series for age 65+ Discontinued 5, 12/14/2009 Zoster (shingles) series for age 50+ Completed 07/10/2019, 05/03/2019, 04/08/2019, Additional history exists Hepatitis C screening for ag e 18-79 Completed 02/05/2021 Tdap Completed 03/06/2023 Influenza for age 65+ Completed 07/30/2024 , 09/14/2023, 09/19/2022, Additional history exists Procedures Procedure Name Priority Date/Time Associated Diagnosis Comments LIPID PANEL W REFLEX MEASURED LDL Routine 07/29/2024 1:09 PM CDT Other hyperlipidemia BASIC METABOLIC PANEL Routine 07/29/2024 1:09 PM CDT Essential hypertension ANTI HCV Routine 02/05/2021 11:21 AM CDT Need for hepatitis C screening test from Last 3 Months or Most Recently Relevant to Health Maintenance Results * LIPID PANEL W REFLEX MEASURED LDL (07/29/2024 1:09 PM CDT) CHOLESTEROL,TOTAL 111 100 - 199 mg/dL 07/30/2024 4:54 AM CDT [facility] Comment: Cholesterol, Total Reference Ranges Desirable <200 mg/dL Borderline 200-239 mg/dL High >=240 mg/dL TRIGLYCERIDES 76 <150 mg/dL 07/30/2024 4:54 AM CDT [facility] HDL CHOLESTEROL 50 >40 mg/dL 4:54 AM CDT [facility] NON-HDL CHOLESTEROL 61 <145 mg/dl 07/30/2024 4:54 AM CDT [facility] CHOL/HDL RATIO 2.22 <4.50 07/30/2024 4:54 AM CDT [facility] LDL CHOLESTEROL 46 <=130 mg/dL 07/30/2024 4:54 AM CDT [facility] VLDL CHOLESTEROL 15 <=30 mg/dL 07/30/2024 4:54 AM CDT [facility] PROVIDER ORDERED STATUS RANDOM 07/30/2024 4:54 AM CDT [facility] Blood BLOOD SPECIMEN / Unknown Venipuncture / Unknown 07/29/2024 1:09 PM CDT 07/29/2024 1:10 PM CDT Yang Eng MD CHEMISTRY [facility] [address] [place] [address], * (ABNORMAL) BASIC METABOLIC PANEL (07/29/2024 1:09 PM CDT) SODIUM 133(L) 136 - 145 mmol/L 07/30/2024 4:54 AM CDT [facility] POTASSIUM 4.5 3.5 - 5.1 mmol/L 07/30/2024 4:54 AM CDT [facility] CHLORIDE 101 98 - 107 mmol/L 07/30/2024 4:54 AM T [facility] CO2,TOTAL 23 22 - 29 mmol/L 07/30/2024 4:54 AM T [facility] ANION GAP 9 5 - 18 07/30/2024 4:54 AM T [facility] GLUCOSE 88 70 - 99 mg/dL 07/30/2024 4:54 AM T [facility] CALCIUM 8.7(L) 8.8 - 10.2 mg/dL 07/30/2024 4:54 AM T [facility] BUN 17 8 - 23 mg/dL 07/30/2024 4:54 AM T [facility] CREATININE 1.40(H) 0.70 - 1.20 mg/dL 07/30/2024 4:54 AM [facility] BUN/CREAT RATIO 12 10 - 20 4:54 AM T [facility] eGFR 51(L) >90 mL/min/1.7 3m2 07/30/2024 4:54 AM T [facility] Comment:As of 2022, eG FR is calculated by the CKD-EPI creatinine equation without race adjustment. ??eGFR can be influenced by muscle mass, exercise, and diet. ??The reported eGFR is an estimation only and is only applicable if the renal function is stable. Blood BLOOD SPECIMEN / Unknown Venipuncture / Unknown 07/29/2024 1:09 PM CDT 07/29/2024 1:10 PM CDT Yang Eng MD [facility] [address] [place] [address], * ANTI HCV [21199.2] (02/05/2021 11:21 AM CDT) HEPATITIS C ANTIBODY Non-React zen Non-React zen 02/05/2021 10:44 PM CDT [facility] Comment:Antibodies to HCV no t detected; does not exclude the possibility of exposure to HCV. Blood BLOOD SPECIMEN / Unknown Venipuncture / Unknown 02/05/2021 11:21 AM CDT 02/05/2021 11:21 AM CDT Yang Eng MD SEND OUTS [facility] 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
[2024-08-01 00:02] LABS: Troponin I* < 0.01 ng/mL (0.01-0.04)
[2024-08-01 00:06] LABS: PCR FLU A Negative PCR FLU A (Negative); PCR FLU B Negative PCR FLU B (Negative); SARS PCR* Negative SARS-CoV-2 (Negative)
--- NOTE | 2024-08-01 00:13 | CRLHL7_ITS ---
For Patients: As a result of the Century Cures Act, medical imaging exams and procedure reports are released immediately into your electronic medical record. You may view this report before your referring provider. If you have questions, please contact your health care provider. INDICATION: Seizure-like activity. CT HEAD WITHOUT CONTRAST TECHNIQUE: Multiple axial CT images were performed through the head without intravenous contrast administration. COMPARISON: No previous studies are currently available for comparison. FINDINGS: No acute intracranial hemorrhage is identified. No extra-axial collections are evident and there is no mass effect or midline shift. There is mild diffuse age-related brain atrophy. Ventricular size and configuration are within normal limits for the patient`s age. Lua-white differentiation is within normal limits. There is patchy hypodensity in the periventricular white matter, a nonspecific finding which most likely reflects chronic small vessel ischemic change. Osseous structures are within normal limits and no fractures are seen. Included portions of the paranasal sinuses and mastoid air cells are normally aerated aside from a left maxillary sinus retention cyst or polyp. IMPRESSION: 1. No acute intracranial abnormality identified. 2. Mild age-related brain atrophy and white matter hypodensity consistent with chronic small vessel ischemic change. ROBERT CHEN MD [facility] Please note that all CT scans at this facility use dose modulation, iterative reconstruction, and/or weight-based dosing when appropriate to reduce radiation dose to as low as reasonably achievable. Dictated by: Daniel Chen MD @ 08/01/2024 00:45:29 (Electronically Signed)
[2024-08-01 01:05] LABS: Appearance Urine Clear (Clear); Bilirubin Urine Negative (Negative); Blood Urine Negative (Negative); Color Urine Yellow (Yellow); Glucose Urine Negative (Negative); Ketones Urine Trace (Negative); Leukocyte Esterase Urine Negative (Negative); Nitrite Urine Negative (Negative); Protein Urine Negative (Negative); Specific Gravity Urine 1.015 (1.000-1.030); Urobilinogen Urine 0.2 (0.2-1.0)
[2024-08-01 01:13] LABS: RBC Urine 0-2 (0-2); Squamous Epithelial Cell Urine Few (None-Few); WBC Urine 0-2 (0-5)
== END 2024-08-01 01:36 | disposition home or self-care (01) ==
PROVIDERS: Emergency Provider Student in an Organized Health Care Education/Training Program; PCP Family Medicine
DX: R56.9 Unspecified convulsions (principal); R53.1 Weakness
CPT/HCPCS: 36415; 70450; 80048; 81001; 83605; 84439; 84443; 84484; 85025; 87631; 93005; 94761; 96365; 96375; 99283; 99284; 99285; J1953; J2405; J7120